=== PATIENT | female | born 1945 | race Caucasian/White ===

== ENCOUNTER 2016-12-08 16:09 | Emergency (ER) | payer MEDICARE, BC ==
[2005-12-08 15:01] VITALS: BP 138/79
[~2016-12-08] VITALS: Ht 162.6 cm; Wt 81.8 kg
[~2016-12-08 16:09] MED LIST: 00186-0370-20 IH; ALBUTEROL0.83 MG/ML IH; AMBIEN 5MG TABLE5 MG PO; AMBIEN CR 12.12.5 MG PO; AMBIEN CR6.25 MG PO; AMBIEN5 MG PO; ANORO IH; ARTHROTEC 775 MG/TAB; ASPI325T6 PO; ASPIRIN 32325 MG/TAB PO; ASTRAMORPH IJ; ATARAX 25MG25 MG/TAB PO; ATIVAN 0.50.5 MG/TAB PO; ATIVAN 1MG T1 MG/TAB PO; CALCIUM 600 + V1 TA1 PO; CELEBREX 200MG200 MG PO; CELEBREX50 MG PO; DOXYCYCLINE 10100 MG PO; ELAVIL50 MG PO; FLUOXETINE; FOSAMAX 70MG TA70 MG PO; LASIX 20MG TABL20 MG PO; LOTENSIN HCT 201 TAB PO; LOTENSIN5 MG PO; MILLIPRED5 MG PO; MORP4; MORPHINE 10M10 MG/ML IJ; MS CONTIN 660 MG/TAB PO; NORVASC 5MG5 MG/TAB PO; OXYCONTIN 10MG10 MG PO; OXYCONTIN 20MG20 MG PO; PERIACTIN 4MG TA4 MG PO; PHENERGAN 25 TA25 MG PO; PHENERGAN50 M1 PO; PRILOSEC 20MG20 MG PO; PROZAC 20MG20 MG PO; RESTASIS0.05% OP; RESTORIL 1515 MG/CAP PO; ROXICODONE15 MG PO; SEROQUEL XR150 MG PO; SEROQUEL50 MG PO; SYNTHROID 0.0.025 MG PO; SYNTHROID0.088 MG/T PO; SYNTHROID0.1 MG/TAB PO; TOPROL XL 50MG50 MG PO; TYLENOL 500MG500 MG PO; ULORIC40 MG PO; VITAMIN B11000 MCG/M IM; VOLTAREN GEL 1%1 TU TP; ZOFRAN 4MG T4 MG/TAB PO; ZOVIRAX400 MG PO; ZYLOPRIM 100MG100 MG PO
[2016-12-08 16:10] VITALS: TEMP 98.9
[2016-12-08] MEDS ORDERED: AMOXICILLIN 50500 MG (16:13)
[2016-12-08] MEDS ORDERED: CEPHALEXIN500 M1 PO (16:45)
[2016-12-08 17:57] VITALS: BP 145/70; PULSE 72
== END 2016-12-08 17:58 | disposition home or self-care (01) ==
LOC: COL.ER 16:09
DX: S81.812A Laceration without foreign body, left lower leg, initial encounter (principal); W22.8XXA Striking against or struck by other objects, initial encounter; Y92.830 Public park as the place of occurrence of the external cause

== ENCOUNTER 2017-03-14 19:14 | Emergency (ER) | payer MEDICARE, BC ==
[2005-12-08 15:01] VITALS: BP 138/79
[~2017-03-14] VITALS: Ht 162.6 cm; Wt 84.1 kg
[~2017-03-14 19:14] MED LIST changes: +AMOXICILLIN 50500 MG; +CEPHALEXIN500 M1 PO
[2017-03-14 19:16] VITALS: TEMP 98
[2017-03-14] MEDS ORDERED: AMBIEN 10MG10 MG PO (19:31)
[2017-03-14] MEDS ORDERED: NORVASC 5MG5 MG/TAB PO (19:31)
[2017-03-14] MEDS ORDERED: CALCIUM 600MG+D1 TAB PO (19:32)
[2017-03-14] MEDS ORDERED: PRILOSEC 20MG20 MG PO (19:32)
[2017-03-14] MEDS ORDERED: PHENERGAN 25 TA25 MG PO (19:33)
[2017-03-14] MEDS ORDERED: 00186-0370-20 IH (19:34)
[2017-03-14] MEDS ORDERED: KLOR-CON SPRIN10 MEQ PO (19:38)
[2017-03-14] MEDS ORDERED: B-12 100 MCG (19:38)
[2017-03-14] MEDS ORDERED: NEURONTIN100 MG/CAP PO (19:38)
[2017-03-14 20:12] LABS: GRAN # 4.8 (1.4-6.5); GRAN % 82.7 % (42.2-75.2); LYMPH # 0.8 (1.2-3.4); LYMPH % 13.2 % (20.0-51.0); MEAN CELL VOLUME 95 fl (80.0-100.0); MEAN CORPUSCULAR HGB CONC 33 g/dl (33.0-37.0); MEAN PLATELET VOLUME 9.5 fl (7.4-10.4); MONO # 0.2 (0.1-0.6); MONO % 3.6 % (1.7-9.3); PLATELET COUNT 224 K/mm3 (130-400); RED BLOOD COUNT 3.62 M/mm3 (4.10-5.30); REDCELL DISTRIBUTION WIDTH-CV 12.6 % (11.5-14.5); WHITE BLOOD COUNT 5.9 K/mm3 (4.8-10.8)
[2017-03-14 20:16] LABS: HEMATOCRIT 34.4 % (37.0-47.0); HEMOGLOBIN 11.4 g/dl (12.5-16.0); MEAN CORPUSCULAR HEMOGLOBIN 31 pg (27.0-31.0)
[2017-03-14 20:21] LABS: ADJUSTED CALCIUM 8.5 mg/dL (8.4-10.2); ALBUMIN 3.8 gm/dL (3.5-5.0); BILIRUBIN,TOTAL 0.4 mg/dL (0.0-1.0); CALCIUM 8.3 mg/dL (8.4-10.2); CREATININE, serum 1.86 mg/dL (0.52-1.25); TOTAL PROTEIN 7.3 gm/dL (6.4-8.2)
[2017-03-14 21:30] VITALS: BP 156/88; PULSE 69
== END 2017-03-14 21:30 | disposition home or self-care (01) ==
LOC: COL.ER 19:14
PROVIDERS: Emergency Medicine
DX: T85.840A Pain due to nervous system prosthetic devices, implants and grafts, initial encounter (principal); E86.0 Dehydration; R93.8 Abnormal findings on diagnostic imaging of other specified body structures; G89.29 Other chronic pain; N18.9 Chronic kidney disease, unspecified; Z96.653 Presence of artificial knee joint, bilateral; C90.01 Multiple myeloma in remission
CPT/HCPCS: J1170; J1200; J2765; J7030

== ENCOUNTER 2017-07-09 16:24 | Emergency (ER) | payer MEDICARE, BC ==
[2005-12-08 15:01] VITALS: BP 138/79
[~2017-07-09] VITALS: Ht 162.6 cm; Wt 90.9 kg
[~2017-07-09 16:24] MED LIST changes: +AMBIEN 10MG10 MG PO; +B-12 100 MCG; +CALCIUM 600MG+D1 TAB PO; +KLOR-CON SPRIN10 MEQ PO; +NEURONTIN100 MG/CAP PO
[2017-07-09 16:27] VITALS: TEMP 98.6
[2017-07-09 18:15] LABS: BASO % 0.1 % (0.0-2.0); GRAN % 84.8 % (42.2-75.2); LYMPH # 0.8 (1.2-3.4); LYMPH % 9.9 % (20.0-51.0); MEAN CELL VOLUME 95 fl (80.0-100.0); MEAN CORPUSCULAR HGB CONC 33 g/dl (33.0-37.0); MEAN PLATELET VOLUME 10.4 fl (7.4-10.4); MONO # 0.4 (0.1-0.6); MONO % 4.2 % (1.7-9.3); PLATELET COUNT 201 K/mm3 (130-400); WHITE BLOOD COUNT 8.3 K/mm3 (4.8-10.8)
[2017-07-09 18:17] LABS: HEMATOCRIT 33.1 % (37.0-47.0); HEMOGLOBIN 10.9 g/dl (12.5-16.0); MEAN CORPUSCULAR HEMOGLOBIN 31 pg (27.0-31.0)
[2017-07-09 18:38] LABS: ADJUSTED CALCIUM 9.5 mg/dL (8.4-10.2); ALBUMIN 4.2 gm/dL (3.5-5.0); BILIRUBIN,TOTAL 0.3 mg/dL (0.0-1.0); CALCIUM 9.7 mg/dL (8.4-10.2); CREATININE, serum 1.61 mg/dL (0.52-1.25); POTASSIUM 5.6 mmol/L (3.4-5.0)
[2017-07-09 18:56] LABS: PH 5 (5-8); SQUAMOUS EPITHELIAL None Seen /hpf; URINE APPEARANCE Clear; URINE BACTERIA Rare /hpf; URINE BILIRUBIN Negative (NEGATIVE); URINE BLOOD Negative (NEGATIVE); URINE COLOR Yellow; URINE GLUCOSE Negative (NEGATIVE); URINE KETONE Negative (NEGATIVE); URINE RBC 0-2 /hpf; URINE UROBILINOGEN Negative (NEGATIVE); URINE WBC 0-2 /hpf
[2017-07-09] MEDS ORDERED: TOPROL XL 50MG50 MG PO (18:57)
[2017-07-09] MEDS ORDERED: LASIX 20MG TABL20 MG PO (19:11)
[2017-07-09] MEDS ORDERED: SYNTHROID0.125 MG/T PO (19:12)
[2017-07-09 23:23] VITALS: BP 205/102; PULSE 56
== END 2017-07-09 23:26 | disposition home or self-care (01) ==
LOC: COL.ER 16:24
PROVIDERS: Emergency Medicine
DX: G89.29 Other chronic pain (principal); R10.31 Right lower quadrant pain; I10 Essential (primary) hypertension; M54.5 Low back pain; Z97.8 Presence of other specified devices
CPT/HCPCS: J1885; J2360; J3010; J7030

== ENCOUNTER → 2017-09-20 | Outpatient (REF) ==
[~2017-09-20] MED LIST changes: +APRESOLINE 10MG10 MG PO; +DESYREL 50MG50 MG PO; +IPRATROPIUM BROM3 M1 IH; +SYNTHROID0.125 MG/T PO; +TYLENOL 325MG325 MG PO
[2017-09-20 09:30] LABS: BASO % 0.7 % (0.0-2.0); EOS # 0.3 (0.0-0.7); EOS % 6.3 % (0-4.0); GRAN # 2.3 (1.4-6.5); GRAN % 50.8 % (42.2-75.2); HEMATOCRIT 40.4 % (37.0-47.0); LYMPH # 1.5 (1.2-3.4); MEAN CELL VOLUME 93 fl (80.0-100.0); MEAN CORPUSCULAR HEMOGLOBIN 30 pg (27.0-31.0); MEAN CORPUSCULAR HGB CONC 32 g/dl (33.0-37.0); MEAN PLATELET VOLUME 10.1 fl (7.4-10.4); MONO # 0.4 (0.1-0.6); MONO % 9.2 % (1.7-9.3); PLATELET COUNT 163 K/mm3 (130-400); RED BLOOD COUNT 4.34 M/mm3 (4.10-5.30); WHITE BLOOD COUNT 4.5 K/mm3 (4.8-10.8)
[2017-09-20 10:13] LABS: CALCIUM 9.9 mg/dL (8.4-10.2); CREATININE, serum 1.52 mg/dL (0.52-1.25); URIC ACID 4.6 mg/dL (2.5-6.2)
== END ==
LOC: ZLAB.STJ 09:21
PROVIDERS: Family Medicine
DX: R41.82 Altered mental status, unspecified (principal)

== ENCOUNTER 2017-09-24 08:22 | Emergency (ER) | payer MEDICARE, BC ==
[2005-12-08 15:01] VITALS: BP 138/79
[~2017-09-24] VITALS: Ht 162.6 cm; Wt 88.6 kg
[2017-09-24 08:23] VITALS: TEMP 97
[2017-09-24 08:56] LABS: BASO % 0.5 % (0.0-2.0); EOS # 0.2 (0.0-0.7); GRAN # 3.5 (1.4-6.5); GRAN % 59.8 % (42.2-75.2); HEMATOCRIT 38.1 % (37.0-47.0); HEMOGLOBIN 12.5 g/dl (12.5-16.0); LYMPH # 1.5 (1.2-3.4); LYMPH % 25.6 % (20.0-51.0); MEAN CELL VOLUME 92 fl (80.0-100.0); MEAN CORPUSCULAR HEMOGLOBIN 30 pg (27.0-31.0); MEAN CORPUSCULAR HGB CONC 33 g/dl (33.0-37.0); MEAN PLATELET VOLUME 10.2 fl (7.4-10.4); MONO # 0.5 (0.1-0.6); MONO % 9.2 % (1.7-9.3); PLATELET COUNT 149 K/mm3 (130-400); RED BLOOD COUNT 4.13 M/mm3 (4.10-5.30); WHITE BLOOD COUNT 5.8 K/mm3 (4.8-10.8)
[2017-09-24 09:05] LABS: ADJUSTED CALCIUM 9.2 mg/dL (8.4-10.2); ALBUMIN 4.3 gm/dL (3.5-5.0); BILIRUBIN,TOTAL 0.6 mg/dL (0.0-1.0); CALCIUM 9.4 mg/dL (8.4-10.2); CREATININE, serum 1.59 mg/dL (0.52-1.25); POTASSIUM 4.4 mmol/L (3.4-5.0); TOTAL PROTEIN 7.7 gm/dL (6.4-8.2)
[2017-09-24 10:56] LABS: COLLECTION METHOD CATHETER
[2017-09-24 11:03] LABS: PH 7 (5-8); SQUAMOUS EPITHELIAL 0-2 /hpf; URINE APPEARANCE Clear; URINE BACTERIA None Seen /hpf; URINE BILIRUBIN Negative (NEGATIVE); URINE BLOOD Negative (NEGATIVE); URINE COLOR Straw; URINE GLUCOSE Negative (NEGATIVE); URINE KETONE Negative (NEGATIVE); URINE LEUKOCYTE ESTERASE Negative (NEGATIVE); URINE PROTEIN(semi-quant) 3+ (NEGATIVE); URINE UROBILINOGEN Negative (NEGATIVE); URINE WBC 0-2 /hpf
[2017-09-24 12:11] VITALS: BP 168/85; PULSE 65
== END 2017-09-24 12:00 | disposition home or self-care (01) ==
LOC: COL.ER 08:22
PROVIDERS: Emergency Medicine
DX: S09.90XA Unspecified injury of head, initial encounter (principal); G89.29 Other chronic pain; I12.9 Hypertensive chronic kidney disease with stage 1 through stage 4 chronic kidney disease, or unspecified chronic kidney disease; N18.9 Chronic kidney disease, unspecified; E03.9 Hypothyroidism, unspecified; M35.3 Polymyalgia rheumatica; W18.30XA Fall on same level, unspecified, initial encounter; W22.8XXA Striking against or struck by other objects, initial encounter
CPT/HCPCS: J2765; J3010; J7030; J7040; J7512

== ENCOUNTER 2017-10-01 03:50 | Emergency (ER) | payer MEDICARE, BC ==
[2005-12-08 15:01] VITALS: BP 138/79
[~2017-10-01] VITALS: Ht 162.6 cm; Wt 89.5 kg
[~2017-10-01 03:50] MED LIST changes: +APRESOLINE50 MG PO; +ASPIRIN E.C. 8181 MG PO; +BENADRYL25 M2 PO; +CEFTIN 250250 MG/TAB PO; +GOOD NEIGH1200 MG/15 PO; +NITRO-DUR0.6 MG/PAT TD; +PROTONIX20 MG PO
[2017-10-01 03:53] VITALS: TEMP 97.1
[2017-10-01 04:05] LABS: BASO % 0.2 % (0.0-2.0); EOS # 0.2 (0.0-0.7); EOS % 1.7 % (0-4.0); GRAN # 9.4 (1.4-6.5); GRAN % 90.3 % (42.2-75.2); HEMATOCRIT 41.4 % (37.0-47.0); LYMPH # 0.3 (1.2-3.4); LYMPH % 3.1 % (20.0-51.0); MEAN CELL VOLUME 91 fl (80.0-100.0); MEAN CORPUSCULAR HEMOGLOBIN 30 pg (27.0-31.0); MEAN CORPUSCULAR HGB CONC 33 g/dl (33.0-37.0); MEAN PLATELET VOLUME 9.9 fl (7.4-10.4); MONO # 0.4 (0.1-0.6); MONO % 4.2 % (1.7-9.3); PLATELET COUNT 179 K/mm3 (130-400); RED BLOOD COUNT 4.56 M/mm3 (4.10-5.30); WHITE BLOOD COUNT 10.4 K/mm3 (4.8-10.8)
[2017-10-01 04:09] LABS: HEMOGLOBIN 13.8 g/dl (12.5-16.0)
[2017-10-01 04:16] LABS: ADJUSTED CALCIUM 9.3 mg/dL (8.4-10.2); ALBUMIN 3.8 gm/dL (3.5-5.0); BILIRUBIN,TOTAL 0.6 mg/dL (0.0-1.0); CALCIUM 9.1 mg/dL (8.4-10.2); CREATININE, serum 2.04 mg/dL (0.52-1.25); MAGNESIUM 1.9 mg/dL (1.6-2.3); PHOSPHOROUS 2.6 mg/dL (2.5-4.5); POTASSIUM 3.6 mmol/L (3.4-5.0); TOTAL PROTEIN 7.4 gm/dL (6.4-8.2)
[2017-10-01 04:28] LABS: TROPONIN-I 0.031 ng/mL (0.000-0.034)
[2017-10-01 04:37] LABS: COLLECTION METHOD CATHETER
[2017-10-01 04:43] LABS: PH 5 (5-8); URINE APPEARANCE Hazy; URINE BACTERIA Rare /hpf; URINE BILIRUBIN Negative (NEGATIVE); URINE BLOOD Negative (NEGATIVE); URINE COLOR Yellow; URINE GLUCOSE Negative (NEGATIVE); URINE KETONE Negative (NEGATIVE); URINE LEUKOCYTE ESTERASE Negative (NEGATIVE); URINE PROTEIN(semi-quant) 3+ (NEGATIVE); URINE UROBILINOGEN Negative (NEGATIVE)
[2017-10-01 09:52] VITALS: BP 164/91; PULSE 76
== END 2017-10-01 09:32 | disposition home or self-care (01) ==
LOC: COL.ER 03:50
PROVIDERS: Emergency Medicine
DX: I10 Essential (primary) hypertension (principal); R11.10 Vomiting, unspecified; I21.4 Non-ST elevation (NSTEMI) myocardial infarction; J44.9 Chronic obstructive pulmonary disease, unspecified; M10.9 Gout, unspecified; G89.29 Other chronic pain; M35.3 Polymyalgia rheumatica; E03.9 Hypothyroidism, unspecified; Z87.440 Personal history of urinary (tract) infections; Z79.82 Long term (current) use of aspirin
CPT/HCPCS: C9113; J0360; J2405; J2550; J3010

== ENCOUNTER → 2017-10-05 | Outpatient (REF) ==
[2017-10-05 10:23] LABS: CREATININE, serum 1.99 mg/dL (0.52-1.25); POTASSIUM 4.6 mmol/L (3.4-5.0)
== END ==
LOC: ZLAB.STJ 09:56
PROVIDERS: Family Medicine
DX: R79.89 Other specified abnormal findings of blood chemistry (principal)

== ENCOUNTER → 2017-10-06 | Outpatient (CLI) | payer MEDICARE, BC | LOC: COL.VAS 08:51 | DX: I10 Essential (primary) hypertension (principal); I70.1 Atherosclerosis of renal artery; N28.9 Disorder of kidney and ureter, unspecified ==

== ENCOUNTER 2018-01-30 12:38 | Emergency (ER) | payer MEDICARE, BC ==
[2005-12-08 15:01] VITALS: BP 138/79
[~2018-01-30] VITALS: Ht 162.6 cm; Wt 81.8 kg
[2018-01-30 12:39] VITALS: BP 155/84; TEMP 97.5
[2018-01-30 13:19] LABS: BASO % 0.5 % (0.0-2.0); EOS # 0.8 (0.0-0.7); EOS % 14.1 % (0-4.0); GRAN # 3.1 (1.4-6.5); LYMPH # 1.2 (1.2-3.4); LYMPH % 20.6 % (20.0-51.0); MEAN CELL VOLUME 93 fl (80.0-100.0); MEAN CORPUSCULAR HGB CONC 33 g/dl (33.0-37.0); MEAN PLATELET VOLUME 9.5 fl (7.4-10.4); MONO # 0.7 (0.1-0.6); MONO % 11.6 % (1.7-9.3); PLATELET COUNT 213 K/mm3 (130-400); RED BLOOD COUNT 3.26 M/mm3 (4.10-5.30); REDCELL DISTRIBUTION WIDTH-CV 14.6 % (11.5-14.5)
[2018-01-30 13:22] LABS: HEMATOCRIT 30.4 % (37.0-47.0); MEAN CORPUSCULAR HEMOGLOBIN 31 pg (27.0-31.0)
[2018-01-30 13:25] LABS: ALBUMIN 3.6 gm/dL (3.5-5.0); BILIRUBIN,TOTAL 0.4 mg/dL (0.0-1.0); C-REACTIVE PROTEIN 1.6 mg/dL (0.0-0.9); CALCIUM 9.2 mg/dL (8.4-10.2); CREATININE, serum 2.55 mg/dL (0.52-1.25); POTASSIUM 4.3 mmol/L (3.4-5.0); TOTAL PROTEIN 8.3 gm/dL (6.4-8.2)
[2018-01-30 14:21] LABS: COLLECTION METHOD CLEAN CATCH
[2018-01-30 14:28] LABS: PH 8 (5-8); SQUAMOUS EPITHELIAL 0-2 /hpf; URINE APPEARANCE Clear; URINE BACTERIA None Seen /hpf; URINE BILIRUBIN Negative (NEGATIVE); URINE BLOOD Negative (NEGATIVE); URINE COLOR Straw; URINE GLUCOSE Negative (NEGATIVE); URINE KETONE Negative (NEGATIVE); URINE LEUKOCYTE ESTERASE Negative (NEGATIVE); URINE NITRATE Negative (NEGATIVE); URINE PROTEIN(semi-quant) 2+ (NEGATIVE); URINE RBC 0-2 /hpf; URINE UROBILINOGEN Negative (NEGATIVE)
[2018-01-30 14:53] VITALS: PULSE 73
== END 2018-01-30 15:03 | disposition home or self-care (01) ==
LOC: COL.ER 12:38
PROVIDERS: Emergency Medicine
DX: R10.31 Right lower quadrant pain (principal); I10 Essential (primary) hypertension; I25.2 Old myocardial infarction; J44.9 Chronic obstructive pulmonary disease, unspecified; E03.9 Hypothyroidism, unspecified; E78.5 Hyperlipidemia, unspecified; Z87.891 Personal history of nicotine dependence; Z79.82 Long term (current) use of aspirin
CPT/HCPCS: J2270; J2405; J7030

== ENCOUNTER 2018-04-07 12:49 | Emergency (ER) | payer MEDICARE, BC ==
[2005-12-08 15:01] VITALS: BP 138/79
[~2018-04-07] VITALS: Ht 162.6 cm; Wt 81.8 kg
[~2018-04-07 12:49] MED LIST changes: +ALDACTONE 25MG25 M1 PO; +B-121000 MCG PO; +CALTRATE-600 W600 MG PO; +LIPITOR20 MG PO; +OMNICEF 300MG300 MG PO; +SEROQUEL 200MG200 MG PO; +TOPROL XL 25MG25 MG PO
[2018-04-07 12:53] VITALS: TEMP 97.8
[2018-04-07 13:20] LABS: BASO % 0.1 % (0.0-2.0); EOS % 0.4 % (0-4.0); GRAN # 6.7 (1.4-6.5); HEMATOCRIT 27.1 % (37.0-47.0); HEMOGLOBIN 8.7 g/dl (12.5-16.0); LYMPH # 0.7 (1.2-3.4); LYMPH % 8.3 % (20.0-51.0); MEAN CELL VOLUME 96 fl (80.0-100.0); MEAN CORPUSCULAR HEMOGLOBIN 31 pg (27.0-31.0); MEAN CORPUSCULAR HGB CONC 32 g/dl (33.0-37.0); MEAN PLATELET VOLUME 11.5 fl (7.4-10.4); MONO # 0.6 (0.1-0.6); MONO % 7.7 % (1.7-9.3); PLATELET COUNT 175 K/mm3 (130-400); RED BLOOD COUNT 2.82 M/mm3 (4.10-5.30); REDCELL DISTRIBUTION WIDTH-CV 18.8 % (11.5-14.5)
[2018-04-07 13:24] LABS: INR 1.2 (0.8-3.0); PROTHROMBIN TIME 13.6 SECONDS (9.7-12.8)
[2018-04-07 13:26] LABS: PARTIAL THROMBOPLASTIN TIME 33.1 SECONDS (26.0-37.0)
[2018-04-07 13:29] LABS: ALBUMIN 3.6 gm/dL (3.5-5.0); BILIRUBIN,TOTAL 0.3 mg/dL (0.0-1.0); CALCIUM 8.3 mg/dL (8.4-10.2); MAGNESIUM 2.5 mg/dL (1.6-2.3); PHOSPHOROUS 5.9 mg/dL (2.5-4.5); TOTAL PROTEIN 7.1 gm/dL (6.4-8.2)
[2018-04-07 13:30] LABS: POTASSIUM 8.1 mmol/L (3.4-5.0)
[2018-04-07 13:40] LABS: TROPONIN-I 0.015 ng/mL (0.000-0.034)
[2018-04-07 13:45] LABS: ARTERIAL BLD GAS TCO2 CT 25.2; ARTERIAL BLOOD GAS BASE EXCESS -2.5 (-2-2); ARTERIAL BLOOD GAS HCO3 23.7 meq/L (22-26); ARTERIAL BLOOD GAS PCO2 47.4 mmHg (35-45); ARTERIAL BLOOD GAS PO2 87.6 mmHg (80-100); ARTERIAL BLOOD GAS pH 7.32 (7.35-7.45)
[2018-04-07 13:58] LABS: THYROID STIMULATING HORMONE 5.15 uIU/mL (0.465-4.680)
[2018-04-07 14:17] LABS: COLLECTION METHOD CLEAN CATCH
[2018-04-07 14:22] LABS: PH 6 (5-8); SQUAMOUS EPITHELIAL None Seen /hpf; URINE APPEARANCE Clear; URINE BACTERIA None Seen /hpf; URINE BILIRUBIN Negative (NEGATIVE); URINE BLOOD Negative (NEGATIVE); URINE COLOR Yellow; URINE GLUCOSE 2+ (NEGATIVE); URINE KETONE Negative (NEGATIVE); URINE LEUKOCYTE ESTERASE Negative (NEGATIVE); URINE NITRATE Negative (NEGATIVE); URINE PROTEIN(semi-quant) 3+ (NEGATIVE); URINE RBC 0-2 /hpf; URINE UROBILINOGEN Negative (NEGATIVE)
[2018-04-07 14:24] VITALS: BP 137/78; PULSE 40
== END 2018-04-07 14:24 | disposition short-term general hospital (02) ==
LOC: COL.ER 12:49
PROVIDERS: Emergency Medicine
DX: N19 Unspecified kidney failure (principal); I50.9 Heart failure, unspecified; E87.5 Hyperkalemia; I49.9 Cardiac arrhythmia, unspecified; Z79.82 Long term (current) use of aspirin
CPT/HCPCS: J0461; J1815; J1940

== ENCOUNTER 2018-07-03 10:52 | Inpatient (IN) | payer MEDICARE, BC ==
[~2018-07-03] VITALS: Ht 162.6 cm; Wt 75.5 kg
[2018-07-03] VITALS (403 sets, daily range): BP systolic 129–181; BP diastolic 69–82; PULSE 78–106; TEMP 98.1–99.1; O2SAT 82–100
[2018-07-03 11:44] LABS: BASO # 0.1 (0.0-0.2); BASO % 0.3 % (0.0-2.0); EOS # 0.1 (0.0-0.7); EOS % 0.7 % (0-4.0); GRAN # 14.8 (1.4-6.5); GRAN % 83.8 % (42.2-75.2); HEMOGLOBIN 11.6 g/dl (12.5-16.0); LYMPH # 1.9 (1.2-3.4); LYMPH % 10.6 % (20.0-51.0); MEAN CELL VOLUME 94 fl (80.0-100.0); MEAN CORPUSCULAR HEMOGLOBIN 32 pg (27.0-31.0); MEAN CORPUSCULAR HGB CONC 34 g/dl (33.0-37.0); MEAN PLATELET VOLUME 9.9 fl (7.4-10.4); MONO # 0.8 (0.1-0.6); MONO % 4.2 % (1.7-9.3); PLATELET COUNT 327 K/mm3 (130-400); RED BLOOD COUNT 3.67 M/mm3 (4.10-5.30); REDCELL DISTRIBUTION WIDTH-CV 12.7 % (11.5-14.5)
[2018-07-03 11:45] LABS: HEMATOCRIT 34.4 % (37.0-47.0); PROTHROMBIN TIME 11.3 SECONDS (9.7-12.8)
[2018-07-03 11:48] LABS: PARTIAL THROMBOPLASTIN TIME 33.4 SECONDS (26.0-37.0)
[2018-07-03 11:50] LABS: ALBUMIN 4.2 gm/dL (3.5-5.0); BILIRUBIN,TOTAL 0.4 mg/dL (0.0-1.0); CALCIUM 9.6 mg/dL (8.4-10.2); CREATININE, serum 2.17 mg/dL (0.52-1.25); POTASSIUM 4.6 mmol/L (3.4-5.0)
[2018-07-03 12:04] LABS: TROPONIN-I 0.016 ng/mL (0.000-0.034)
[2018-07-03 12:20] LABS: COLLECTION METHOD CLEAN CATCH
[2018-07-03 12:25] LABS: PH 8 (5-8); SQUAMOUS EPITHELIAL 0-2 /hpf; URINE APPEARANCE Clear; URINE BACTERIA None Seen /hpf; URINE BILIRUBIN Negative (NEGATIVE); URINE BLOOD Negative (NEGATIVE); URINE COLOR Yellow; URINE GLUCOSE Negative (NEGATIVE); URINE KETONE Negative (NEGATIVE); URINE LEUKOCYTE ESTERASE Negative (NEGATIVE); URINE NITRATE Negative (NEGATIVE); URINE PROTEIN(semi-quant) 3+ (NEGATIVE); URINE RBC 0-2 /hpf; URINE UROBILINOGEN Negative (NEGATIVE)
[2018-07-03] MEDS ORDERED: DEMADEX 20MG20 M1 PO (13:42)
[2018-07-03] MEDS ORDERED: AMBIEN 10MG10 MG PO (13:42)
[2018-07-03] MEDS ORDERED: TOPROL XL 25MG25 MG PO (13:44)
[2018-07-03] MEDS ORDERED: LEXAPRO 10MG10 MG PO (13:46)
[2018-07-03] MEDS ORDERED: ABILIFY2 MG PO (13:49)
[2018-07-04] VITALS (531 sets, daily range): BP systolic 135–189; BP diastolic 65–100; PULSE 72–101; TEMP 97.5–98.6; O2SAT 82–100
[2018-07-04 04:20] LABS: BASO % 0.1 % (0.0-2.0); GRAN # 8.8 (1.4-6.5); GRAN % 87.4 % (42.2-75.2); HEMOGLOBIN 10.4 g/dl (12.5-16.0); LYMPH # 0.8 (1.2-3.4); LYMPH % 7.5 % (20.0-51.0); MEAN CELL VOLUME 93 fl (80.0-100.0); MEAN CORPUSCULAR HEMOGLOBIN 32 pg (27.0-31.0); MEAN CORPUSCULAR HGB CONC 34 g/dl (33.0-37.0); MEAN PLATELET VOLUME 9.8 fl (7.4-10.4); MONO # 0.5 (0.1-0.6); MONO % 4.7 % (1.7-9.3); PLATELET COUNT 282 K/mm3 (130-400); RED BLOOD COUNT 3.29 M/mm3 (4.10-5.30); REDCELL DISTRIBUTION WIDTH-CV 13.2 % (11.5-14.5)
[2018-07-04 04:21] LABS: HEMATOCRIT 30.7 % (37.0-47.0)
[2018-07-04 04:30] LABS: CALCIUM 8.5 mg/dL (8.4-10.2); CHOLESTEROL RISK RATIO 4.3; CREATININE, serum 2.31 mg/dL (0.52-1.25); POTASSIUM 5.6 mmol/L (3.4-5.0)
[2018-07-04 04:49] LABS: TROPONIN-I 0.051 ng/mL (0.000-0.034)
[2018-07-04 11:26] LABS: CALCIUM 8.8 mg/dL (8.4-10.2); CREATININE, serum 2.46 mg/dL (0.52-1.25); POTASSIUM 4.6 mmol/L (3.4-5.0)
[2018-07-05] VITALS (8 sets, daily range): BP systolic 119–204; BP diastolic 50–91; PULSE 58–66; TEMP 97.2–98.7
[2018-07-05 06:44] LABS: BASO % 0.4 % (0.0-2.0); EOS # 0.1 (0.0-0.7); EOS % 1.6 % (0-4.0); GRAN # 5.1 (1.4-6.5); GRAN % 69.8 % (42.2-75.2); LYMPH # 1.4 (1.2-3.4); LYMPH % 19.2 % (20.0-51.0); MEAN CELL VOLUME 97 fl (80.0-100.0); MEAN CORPUSCULAR HGB CONC 33 g/dl (33.0-37.0); MEAN PLATELET VOLUME 10.1 fl (7.4-10.4); MONO # 0.6 (0.1-0.6); MONO % 8.7 % (1.7-9.3); PLATELET COUNT 234 K/mm3 (130-400); RED BLOOD COUNT 2.69 M/mm3 (4.10-5.30); REDCELL DISTRIBUTION WIDTH-CV 13.2 % (11.5-14.5)
[2018-07-05 06:50] LABS: HEMOGLOBIN 8.5 g/dl (12.5-16.0); MEAN CORPUSCULAR HEMOGLOBIN 32 pg (27.0-31.0)
[2018-07-05 06:59] LABS: ALBUMIN 3.1 gm/dL (3.5-5.0); CALCIUM 8.5 mg/dL (8.4-10.2); CREATININE, serum 2.44 mg/dL (0.52-1.25); MAGNESIUM 2.2 mg/dL (1.6-2.3); PHOSPHOROUS 4.3 mg/dL (2.5-4.5); POTASSIUM 4.9 mmol/L (3.4-5.0)
[2018-07-06] VITALS (7 sets, daily range): BP systolic 138–179; BP diastolic 61–91; PULSE 60–100; TEMP 97.4–98.9
[2018-07-06 07:56] LABS: BASO % 0.4 % (0.0-2.0); EOS # 0.2 (0.0-0.7); EOS % 2.6 % (0-4.0); GRAN # 5.3 (1.4-6.5); GRAN % 67.7 % (42.2-75.2); LYMPH # 1.6 (1.2-3.4); LYMPH % 20.7 % (20.0-51.0); MEAN CELL VOLUME 93 fl (80.0-100.0); MEAN CORPUSCULAR HGB CONC 34 g/dl (33.0-37.0); MEAN PLATELET VOLUME 9.6 fl (7.4-10.4); MONO # 0.6 (0.1-0.6); MONO % 8.3 % (1.7-9.3); PLATELET COUNT 229 K/mm3 (130-400); RED BLOOD COUNT 3.17 M/mm3 (4.10-5.30)
[2018-07-06 07:59] LABS: HEMATOCRIT 29.4 % (37.0-47.0); HEMOGLOBIN 9.9 g/dl (12.5-16.0); MEAN CORPUSCULAR HEMOGLOBIN 31 pg (27.0-31.0)
[2018-07-06 08:11] LABS: CALCIUM 8.9 mg/dL (8.4-10.2); CREATININE, serum 2.58 mg/dL (0.52-1.25); POTASSIUM 4.9 mmol/L (3.4-5.0)
[2018-07-07] VITALS (12 sets, daily range): BP systolic 59–190; BP diastolic 25–98; PULSE 58–76; TEMP 97–98.4
[2018-07-07 06:05] LABS: BASO % 0.7 % (0.0-2.0); EOS # 0.2 (0.0-0.7); GRAN # 3.8 (1.4-6.5); GRAN % 61.9 % (42.2-75.2); HEMATOCRIT 28.8 % (37.0-47.0); HEMOGLOBIN 9.5 g/dl (12.5-16.0); LYMPH # 1.4 (1.2-3.4); LYMPH % 23.6 % (20.0-51.0); MEAN CELL VOLUME 95 fl (80.0-100.0); MEAN CORPUSCULAR HEMOGLOBIN 31 pg (27.0-31.0); MEAN CORPUSCULAR HGB CONC 33 g/dl (33.0-37.0); MEAN PLATELET VOLUME 10.1 fl (7.4-10.4); MONO # 0.6 (0.1-0.6); MONO % 10.6 % (1.7-9.3); PLATELET COUNT 225 K/mm3 (130-400); RED BLOOD COUNT 3.04 M/mm3 (4.10-5.30); REDCELL DISTRIBUTION WIDTH-CV 13.1 % (11.5-14.5)
[2018-07-07 06:17] LABS: CALCIUM 8.9 mg/dL (8.4-10.2); CREATININE, serum 2.8 mg/dL (0.52-1.25); POTASSIUM 4.5 mmol/L (3.4-5.0)
[2018-07-07 08:41] LABS: PROTHROMBIN TIME 11.1 SECONDS (9.7-12.8)
[2018-07-07 08:44] LABS: PARTIAL THROMBOPLASTIN TIME 45.7 SECONDS (26.0-37.0)
[2018-07-08 03:49] VITALS: BP 146/72; PULSE 69; TEMP 98.1
[2018-07-08 07:21] LABS: BASO % 0.4 % (0.0-2.0); EOS # 0.2 (0.0-0.7); EOS % 3.6 % (0-4.0); GRAN # 2.6 (1.4-6.5); GRAN % 59.2 % (42.2-75.2); LYMPH # 1.2 (1.2-3.4); LYMPH % 27.4 % (20.0-51.0); MEAN CELL VOLUME 96 fl (80.0-100.0); MEAN CORPUSCULAR HGB CONC 33 g/dl (33.0-37.0); MEAN PLATELET VOLUME 10.2 fl (7.4-10.4); MONO # 0.4 (0.1-0.6); MONO % 9.2 % (1.7-9.3); PLATELET COUNT 203 K/mm3 (130-400); RED BLOOD COUNT 2.76 M/mm3 (4.10-5.30); REDCELL DISTRIBUTION WIDTH-CV 13.3 % (11.5-14.5)
[2018-07-08 07:28] LABS: HEMATOCRIT 26.4 % (37.0-47.0); HEMOGLOBIN 8.6 g/dl (12.5-16.0); MEAN CORPUSCULAR HEMOGLOBIN 31 pg (27.0-31.0)
[2018-07-08 07:30] LABS: CALCIUM 8.6 mg/dL (8.4-10.2); CREATININE, serum 2.43 mg/dL (0.52-1.25); POTASSIUM 4.6 mmol/L (3.4-5.0)
[2018-07-08 09:12] VITALS: BP 158/75; PULSE 64; TEMP 97.9
[2018-07-08 11:55] VITALS: BP 157/88; PULSE 63; TEMP 98.4
[2018-07-08 16:25] VITALS: BP 152/70; PULSE 66; TEMP 98.3
[2018-07-08 19:40] VITALS: BP 151/72; PULSE 66; TEMP 97.7
[2018-07-09] VITALS (7 sets, daily range): BP systolic 151–186; BP diastolic 70–89; PULSE 60–67; TEMP 97.7–98.9
[2018-07-09 07:39] LABS: CALCIUM 8.7 mg/dL (8.4-10.2); CREATININE, serum 2.21 mg/dL (0.52-1.25); POTASSIUM 4.5 mmol/L (3.4-5.0)
[2018-07-10] VITALS (305 sets, daily range): BP systolic 133–191; BP diastolic 69–103; PULSE 20–88; TEMP 96.5–98.7; O2SAT 93–98
[2018-07-10 06:30] LABS: BASO % 0.6 % (0.0-2.0); EOS # 0.2 (0.0-0.7); EOS % 4.5 % (0-4.0); GRAN # 3.3 (1.4-6.5); GRAN % 63.7 % (42.2-75.2); LYMPH # 1.2 (1.2-3.4); MEAN CELL VOLUME 95 fl (80.0-100.0); MEAN CORPUSCULAR HGB CONC 33 g/dl (33.0-37.0); MEAN PLATELET VOLUME 10.8 fl (7.4-10.4); MONO # 0.4 (0.1-0.6); PLATELET COUNT 179 K/mm3 (130-400); RED BLOOD COUNT 2.59 M/mm3 (4.10-5.30); REDCELL DISTRIBUTION WIDTH-CV 13.2 % (11.5-14.5)
[2018-07-10 06:36] LABS: HEMATOCRIT 24.6 % (37.0-47.0); MEAN CORPUSCULAR HEMOGLOBIN 31 pg (27.0-31.0)
[2018-07-10 06:38] LABS: CALCIUM 8.7 mg/dL (8.4-10.2); CREATININE, serum 2.27 mg/dL (0.52-1.25)
[2018-07-11] VITALS (823 sets, daily range): BP systolic 103–147; BP diastolic 62–100; PULSE 68–83; TEMP 97.7–98.6; O2SAT 76–99
[2018-07-11 07:08] LABS: BASO % 0.2 % (0.0-2.0); GRAN # 8.6 (1.4-6.5); GRAN % 88.1 % (42.2-75.2); LYMPH # 0.7 (1.2-3.4); LYMPH % 6.9 % (20.0-51.0); MEAN CELL VOLUME 95 fl (80.0-100.0); MEAN CORPUSCULAR HGB CONC 33 g/dl (33.0-37.0); MEAN PLATELET VOLUME 9.8 fl (7.4-10.4); MONO # 0.4 (0.1-0.6); MONO % 4.4 % (1.7-9.3); PLATELET COUNT 171 K/mm3 (130-400); REDCELL DISTRIBUTION WIDTH-CV 13.4 % (11.5-14.5)
[2018-07-11 07:13] LABS: HEMATOCRIT 22.7 % (37.0-47.0); HEMOGLOBIN 7.5 g/dl (12.5-16.0); MEAN CORPUSCULAR HEMOGLOBIN 31 pg (27.0-31.0)
[2018-07-12] VITALS (821 sets, daily range): BP systolic 144–175; BP diastolic 73–94; PULSE 68–95; TEMP 97.4–98; O2SAT 72–100
[2018-07-12 05:38] LABS: MEAN CELL VOLUME 97 fl (80.0-100.0); MEAN CORPUSCULAR HGB CONC 32 g/dl (33.0-37.0); MEAN PLATELET VOLUME 10.2 fl (7.4-10.4); PLATELET COUNT 142 K/mm3 (130-400); RED BLOOD COUNT 3.49 M/mm3 (4.10-5.30); REDCELL DISTRIBUTION WIDTH-CV 13.5 % (11.5-14.5)
[2018-07-12 05:46] LABS: HEMOGLOBIN 10.9 g/dl (12.5-16.0); MEAN CORPUSCULAR HEMOGLOBIN 31 pg (27.0-31.0)
[2018-07-12 05:47] LABS: HEMATOCRIT 33.7 % (37.0-47.0)
[2018-07-12 05:49] LABS: CALCIUM 8.5 mg/dL (8.4-10.2); CREATININE, serum 2.45 mg/dL (0.52-1.25); POTASSIUM 4.7 mmol/L (3.4-5.0)
[2018-07-12 06:25] LABS: BAND 5 % (0-10); EOSINOPHIL 1 % (0-4); HYPOCHROMIA 1+; LYMPHOCYTE 14 % (20.0-51.0); METAMYELOCYTE 2 % (0-0); NEUTROPHILS 70 % (42.0-75.2); PLATELET ESTIMATE DECREASED (NORMAL)
[2018-07-12 06:27] LABS: ANISOCYTOSIS 1+
[2018-07-13 01:01] VITALS: BP 180/89; PULSE 72; TEMP 98
[2018-07-13 04:17] VITALS: BP 148/75; PULSE 68; TEMP 97.6
[2018-07-13 07:36] VITALS: BP 183/86; PULSE 73; TEMP 97.9
[2018-07-13 07:44] LABS: BASO % 0.4 % (0.0-2.0); EOS # 0.3 (0.0-0.7); EOS % 5.1 % (0-4.0); GRAN # 3.5 (1.4-6.5); GRAN % 64.7 % (42.2-75.2); LYMPH % 18.1 % (20.0-51.0); MEAN CELL VOLUME 96 fl (80.0-100.0); MEAN CORPUSCULAR HGB CONC 33 g/dl (33.0-37.0); MONO # 0.6 (0.1-0.6); MONO % 11.5 % (1.7-9.3); PLATELET COUNT 177 K/mm3 (130-400); RED BLOOD COUNT 2.33 M/mm3 (4.10-5.30); REDCELL DISTRIBUTION WIDTH-CV 13.3 % (11.5-14.5)
[2018-07-13 07:47] LABS: HEMATOCRIT 22.3 % (37.0-47.0); MEAN CORPUSCULAR HEMOGLOBIN 31 pg (27.0-31.0)
[2018-07-13 07:51] LABS: HEMOGLOBIN 7.3 g/dl (12.5-16.0)
[2018-07-13 07:54] LABS: CALCIUM 8.5 mg/dL (8.4-10.2); CREATININE, serum 2.47 mg/dL (0.52-1.25); POTASSIUM 4.7 mmol/L (3.4-5.0)
[2018-07-13] MEDS ORDERED: BRILINTA90 MG PO (11:46)
[2018-07-13] MEDS ORDERED: LIPITOR 80MG80 MG PO (11:46)
[2018-07-13] MEDS ORDERED: NITROSTAT0.4 MG/TAB SL (11:47)
[2018-07-13] MEDS ORDERED: TOPROL XL 25MG25 MG PO (11:47)
[2018-07-13] MEDS ORDERED: NORVASC 10MG10 MG PO (11:47)
[2018-07-13] MEDS ORDERED: ALDACTONE 25MG25 M1 PO (11:48)
[2018-07-13 11:58] VITALS: BP 157/91; PULSE 78; TEMP 97.9
== END 2018-07-13 16:10 | disposition home or self-care (01) | DRG 246 ==
LOC: COL.ER 10:52 → ICU 13:03 → MEDICAL 13:03 → ICU 13:04 → MEDICAL 07-04 12:06 → ICU 07-10 14:28 → MEDICAL 07-12 20:44
PROVIDERS: Emergency Medicine; Family Medicine; Hospitalist; Internal Medicine; Internal Medicine Cardiovascular Disease; Internal Medicine Nephrology; Nurse Practitioner Family; Physician Assistant
PROC: B2111ZZ Fluoroscopy of Multiple Coronary Arteries using Low Osmolar Contrast (ICD-10-PCS; 2018-07-07)
PROC: 4A023N7 Measurement of Cardiac Sampling and Pressure, Left Heart, Percutaneous Approach (ICD-10-PCS; 2018-07-07)
PROC: 027236Z Dilation of Coronary Artery, Three Arteries with Three Drug-eluting Intraluminal Devices, Percutaneous Approach (ICD-10-PCS; principal; 2018-07-10)
PROC: B2111ZZ Fluoroscopy of Multiple Coronary Arteries using Low Osmolar Contrast (ICD-10-PCS; 2018-07-10)
DX: I16.0 Hypertensive urgency (principal); I21.A1 Myocardial infarction type 2; N18.4 Chronic kidney disease, stage 4 (severe); I50.32 Chronic diastolic (congestive) heart failure; Z66 Do not resuscitate; E85.89 Other amyloidosis; Q21.1 Atrial septal defect; C90.00 Multiple myeloma not having achieved remission; N17.9 Acute kidney failure, unspecified; E85.81 Light chain (AL) amyloidosis; E87.1 Hypo-osmolality and hyponatremia; I97.638 Postprocedural hematoma of a circulatory system organ or structure following other circulatory system procedure; I13.0 Hypertensive heart and chronic kidney disease with heart failure and stage 1 through stage 4 chronic kidney disease, or unspecified chronic kidney disease; I25.10 Atherosclerotic heart disease of native coronary artery without angina pectoris; E78.5 Hyperlipidemia, unspecified; Z87.891 Personal history of nicotine dependence; J44.9 Chronic obstructive pulmonary disease, unspecified; M35.3 Polymyalgia rheumatica; I27.22 Pulmonary hypertension due to left heart disease; I34.0 Nonrheumatic mitral (valve) insufficiency; E87.5 Hyperkalemia; D64.9 Anemia, unspecified; G89.29 Other chronic pain
CPT/HCPCS: 99223-AI; 99231-AI; 99232-AI; 99233-AI; 99239; C1725; C1760; C1769; C1874; C1887; C1894; C9600; J0360; J1644; J1815; J2250; J2270; J2405; J2550; J2765; J3010; J7030; J7050

== ENCOUNTER 2018-08-28 21:27 | Inpatient (IN) | payer MEDICARE, BC ==
[~2018-08-28] VITALS: Ht 162.6 cm; Wt 77.3 kg
[~2018-08-28 21:27] MED LIST changes: +ABILIFY2 MG PO; +BRILINTA90 MG PO; +DEMADEX 20MG20 M1 PO; +LEXAPRO 10MG10 MG PO; +LIPITOR 80MG80 MG PO; +NITROSTAT0.4 MG/TAB SL; +NORVASC 10MG10 MG PO
[2018-08-28 22:51] LABS: BASO % 0.2 % (0.0-2.0); EOS # 0.1 (0.0-0.7); EOS % 0.7 % (0-4.0); GRAN # 14.9 (1.4-6.5); GRAN % 89.8 % (42.2-75.2); LYMPH # 0.5 (1.2-3.4); LYMPH % 3.2 % (20.0-51.0); MEAN CELL VOLUME 93 fl (80.0-100.0); MEAN CORPUSCULAR HGB CONC 34 g/dl (33.0-37.0); MEAN PLATELET VOLUME 10.3 fl (7.4-10.4); MONO # 0.9 (0.1-0.6); MONO % 5.6 % (1.7-9.3); PLATELET COUNT 188 K/mm3 (130-400); RED BLOOD COUNT 2.41 M/mm3 (4.10-5.30); REDCELL DISTRIBUTION WIDTH-CV 13.9 % (11.5-14.5)
[2018-08-28 22:52] LABS: HEMATOCRIT 22.5 % (37.0-47.0); HEMOGLOBIN 7.7 g/dl (12.5-16.0); MEAN CORPUSCULAR HEMOGLOBIN 32 pg (27.0-31.0)
[2018-08-28 22:56] LABS: INR 1.2 (0.8-3.0); PROTHROMBIN TIME 13.2 SECONDS (9.7-12.8)
[2018-08-28 23:02] LABS: ALBUMIN 3.8 gm/dL (3.5-5.0); BILIRUBIN,TOTAL 0.3 mg/dL (0.0-1.0); CALCIUM 8.8 mg/dL (8.4-10.2); CREATININE, serum 3.09 mg/dL (0.52-1.25); POTASSIUM 4.1 mmol/L (3.4-5.0); TOTAL PROTEIN 7.4 gm/dL (6.4-8.2)
[2018-08-28 23:13] LABS: TROPONIN-I 0.029 ng/mL (0.000-0.034)
[2018-08-29] VITALS (10 sets, daily range): BP systolic 119–165; BP diastolic 52–80; PULSE 66–87; TEMP 97.8–98.8
[2018-08-29] MEDS ORDERED: DEMADEX 20MG20 M1 PO (01:42)
[2018-08-29] MEDS ORDERED: REMERON30 MG PO (01:42)
[2018-08-29 07:22] LABS: BASO % 0.1 % (0.0-2.0); EOS # 0.1 (0.0-0.7); EOS % 0.4 % (0-4.0); GRAN # 10.1 (1.4-6.5); GRAN % 85.7 % (42.2-75.2); LYMPH # 0.8 (1.2-3.4); LYMPH % 7.2 % (20.0-51.0); MEAN CELL VOLUME 97 fl (80.0-100.0); MEAN CORPUSCULAR HGB CONC 33 g/dl (33.0-37.0); MEAN PLATELET VOLUME 10.7 fl (7.4-10.4); MONO # 0.7 (0.1-0.6); MONO % 6.3 % (1.7-9.3); PLATELET COUNT 186 K/mm3 (130-400); RED BLOOD COUNT 2.06 M/mm3 (4.10-5.30); REDCELL DISTRIBUTION WIDTH-CV 14.1 % (11.5-14.5)
[2018-08-29 07:27] LABS: HEMOGLOBIN 6.6 g/dl (12.5-16.0); MEAN CORPUSCULAR HEMOGLOBIN 32 pg (27.0-31.0)
[2018-08-29 07:33] LABS: CALCIUM 8.5 mg/dL (8.4-10.2); CREATININE, serum 3.33 mg/dL (0.52-1.25); MAGNESIUM 2.2 mg/dL (1.6-2.3); POTASSIUM 4.7 mmol/L (3.4-5.0)
[2018-08-29 07:45] LABS: TROPONIN-I 6 HR POST INITIAL 0.048 ng/mL (0.000-0.034)
[2018-08-29 10:47] LABS: HEMATOCRIT 20.9 % (37.0-47.0)
[2018-08-29 10:48] LABS: HEMOGLOBIN 6.9 g/dl (12.5-16.0)
[2018-08-29 15:13] LABS: COLLECTION METHOD CLEAN CATCH
[2018-08-29 15:39] LABS: PH 5 (5-8); SQUAMOUS EPITHELIAL None Seen /hpf; URINE APPEARANCE Clear; URINE BACTERIA None Seen /hpf; URINE BILIRUBIN Negative (NEGATIVE); URINE BLOOD Negative (NEGATIVE); URINE COLOR Straw; URINE GLUCOSE Negative (NEGATIVE); URINE KETONE Negative (NEGATIVE); URINE LEUKOCYTE ESTERASE Negative (NEGATIVE); URINE NITRATE Negative (NEGATIVE); URINE PROTEIN(semi-quant) 3+ (NEGATIVE); URINE RBC 0-2 /hpf; URINE UROBILINOGEN Negative (NEGATIVE)
[2018-08-30] VITALS (13 sets, daily range): BP systolic 112–195; BP diastolic 51–86; PULSE 62–84; TEMP 97.6–98.9
[2018-08-30 07:20] LABS: BASO % 0.3 % (0.0-2.0); EOS # 0.4 (0.0-0.7); EOS % 6.7 % (0-4.0); LYMPH % 15.8 % (20.0-51.0); MEAN CELL VOLUME 97 fl (80.0-100.0); MEAN CORPUSCULAR HGB CONC 33 g/dl (33.0-37.0); MEAN PLATELET VOLUME 10.4 fl (7.4-10.4); MONO # 0.7 (0.1-0.6); PLATELET COUNT 191 K/mm3 (130-400); RED BLOOD COUNT 2.15 M/mm3 (4.10-5.30)
[2018-08-30 07:21] LABS: HEMATOCRIT 20.9 % (37.0-47.0); MEAN CORPUSCULAR HEMOGLOBIN 32 pg (27.0-31.0)
[2018-08-30 07:22] LABS: HEMOGLOBIN 6.8 g/dl (12.5-16.0)
[2018-08-30 07:33] LABS: CALCIUM 8.1 mg/dL (8.4-10.2); CREATININE, serum 3.07 mg/dL (0.52-1.25); POTASSIUM 3.8 mmol/L (3.4-5.0)
[2018-08-30 07:44] LABS: TROPONIN-I 0.03 ng/mL (0.000-0.034)
[2018-08-31 00:15] VITALS: BP 121/49; PULSE 70; TEMP 99
[2018-08-31 03:28] VITALS: BP 134/55; PULSE 64; TEMP 98.6
[2018-08-31 07:32] VITALS: BP 158/72; PULSE 59; TEMP 97.9
[2018-08-31 09:26] LABS: BASO % 0.3 % (0.0-2.0); EOS # 0.7 (0.0-0.7); EOS % 11.3 % (0-4.0); GRAN # 3.3 (1.4-6.5); LYMPH # 1.4 (1.2-3.4); LYMPH % 22.7 % (20.0-51.0); MEAN CELL VOLUME 98 fl (80.0-100.0); MEAN CORPUSCULAR HGB CONC 33 g/dl (33.0-37.0); MEAN PLATELET VOLUME 9.9 fl (7.4-10.4); MONO # 0.6 (0.1-0.6); MONO % 9.4 % (1.7-9.3); PLATELET COUNT 206 K/mm3 (130-400); RED BLOOD COUNT 2.34 M/mm3 (4.10-5.30)
[2018-08-31 09:32] LABS: HEMOGLOBIN 7.5 g/dl (12.5-16.0); MEAN CORPUSCULAR HEMOGLOBIN 32 pg (27.0-31.0)
[2018-08-31 09:39] LABS: CALCIUM 8.6 mg/dL (8.4-10.2); CREATININE, serum 3.11 mg/dL (0.52-1.25); POTASSIUM 3.8 mmol/L (3.4-5.0)
[2018-08-31] MEDS ORDERED: PLAVIX 75MG TAB75 MG PO (10:54)
[2018-08-31 11:35] VITALS: BP 170/83; PULSE 64; TEMP 98.5
[2018-09-01 17:44] LABS: LAMDA FREE LIGHT CHAIN SERUM 6.37 mg/dL (())
== END 2018-08-31 16:59 | disposition home or self-care (01) | DRG 811 ==
LOC: COL.ER 21:27 → MEDICAL 23:31
PROVIDERS: Emergency Medicine; Hospitalist; Internal Medicine Gastroenterology; Nurse Practitioner; Physician Assistant
PROC: 0DB68ZX Excision of Stomach, Via Natural or Artificial Opening Endoscopic, Diagnostic (ICD-10-PCS; principal; 2018-08-29 13:00)
PROC: 0DBK8ZX Excision of Ascending Colon, Via Natural or Artificial Opening Endoscopic, Diagnostic (ICD-10-PCS; 2018-08-30)
PROC: 0DBL8ZX Excision of Transverse Colon, Via Natural or Artificial Opening Endoscopic, Diagnostic (ICD-10-PCS; 2018-08-30)
DX: D64.9 Anemia, unspecified (principal); I21.A1 Myocardial infarction type 2; I13.0 Hypertensive heart and chronic kidney disease with heart failure and stage 1 through stage 4 chronic kidney disease, or unspecified chronic kidney disease; I50.32 Chronic diastolic (congestive) heart failure; N18.4 Chronic kidney disease, stage 4 (severe); N17.9 Acute kidney failure, unspecified; E85.9 Amyloidosis, unspecified; Z66 Do not resuscitate; D12.6 Benign neoplasm of colon, unspecified; K21.0 Gastro-esophageal reflux disease with esophagitis; K29.30 Chronic superficial gastritis without bleeding; I25.10 Atherosclerotic heart disease of native coronary artery without angina pectoris; Z95.5 Presence of coronary angioplasty implant and graft; J44.9 Chronic obstructive pulmonary disease, unspecified; I27.20 Pulmonary hypertension, unspecified; E78.5 Hyperlipidemia, unspecified; M35.3 Polymyalgia rheumatica; Z85.79 Personal history of other malignant neoplasms of lymphoid, hematopoietic and related tissues; F41.8 Other specified anxiety disorders; D63.1 Anemia in chronic kidney disease; G89.29 Other chronic pain
CPT/HCPCS: 99223-AI; 99233-AI; 99239; A4216; C9113; J0696; J1170; J2250; J2405; J3010; J7030

== ENCOUNTER 2018-09-25 08:10 | Outpatient (CLI) | payer MEDICARE, BC ==
[2005-12-08 15:01] VITALS: BP 138/79
[~2018-09-25] VITALS: Ht 162.7 cm; Wt 81.0 kg
[2018-09-25] VITALS (8 sets, daily range): BP systolic 111–160; BP diastolic 59–96; PULSE 63–71; TEMP 97.4–98
[~2018-09-25 08:10] MED LIST changes: +PLAVIX 75MG TAB75 MG PO; +REMERON30 MG PO
[2018-09-25] MEDS ORDERED: NORVASC 10MG10 MG PO (09:56)
[2018-09-25] MEDS ORDERED: ASPIRIN E.C. 8181 MG PO (09:56)
[2018-09-25] MEDS ORDERED: LIPITOR 80MG80 MG PO (09:57)
[2018-09-25] MEDS ORDERED: PLAVIX 75MG TAB75 MG PO (09:58)
[2018-09-25] MEDS ORDERED: TOPROL XL 25MG25 MG PO (10:00)
[2018-09-25] MEDS ORDERED: NITROSTAT0.4 MG/TAB SL (10:02)
[2018-09-25] MEDS ORDERED: ALDACTONE 25MG25 M1 PO (10:02)
== END 2018-09-25 16:27 | disposition home or self-care (01) ==
LOC: COL.VAS 08:10
DX: T80.212A Local infection due to central venous catheter, initial encounter (principal); N18.6 End stage renal disease
CPT/HCPCS: G0365; J0690; J1644; J2250; J3010

== ENCOUNTER 2018-10-11 08:04 | Day surgery (SDC) | payer MEDICARE, BC ==
[2005-12-08 15:01] VITALS: BP 138/79
[2018-10-11] VITALS (7 sets, daily range): BP systolic 123–147; BP diastolic 60–78; PULSE 62–73; TEMP 97.8
[~2018-10-11] VITALS: Ht 162.6 cm; Wt 82.5 kg
[2018-10-11] MEDS ORDERED: ZOVIRAX 200MG200 MG PO (09:27)
[2018-10-11 09:35] LABS: CALCIUM 9.8 mg/dL (8.4-10.2); POTASSIUM 4.5 mmol/L (3.4-5.0)
[2018-10-11] MEDS ORDERED: AMBIEN 5MG TABLE5 MG PO (09:40)
[2018-10-11] MEDS ORDERED: NORVASC 5MG5 MG/TAB PO (09:41)
[2018-10-11] MEDS ORDERED: ABILIFY2 MG PO (09:41)
[2018-10-11] MEDS ORDERED: LEXAPRO 10MG10 MG PO (09:42)
[2018-10-11] MEDS ORDERED: ATIVAN 1MG T1 MG/TAB PO (09:43)
[2018-10-11] MEDS ORDERED: LOPRESSOR 225 MG/TAB PO (09:44)
[2018-10-11 09:47] LABS: CREATININE, serum 4.43 mg/dL (0.52-1.25)
--- NOTE | 2018-10-11 11:10 | NUR ---
Patient returns to room 5 per cart from surgery and is awake and alert. Temp 98.5 and room air sats 92%. IV fluids infusing and denies left arm pain or nausea. Incision noted to the left antecubital area dry and no drainage noted. Faint thrill palpated. Given water to sip on. Allowed to rest. Call light in reach and siderails up x2.
--- NOTE | 2018-10-11 11:25 | NUR ---
Eating muffin and drinking juice. Room air sats 93%. Denies pain or nausea.
--- NOTE | 2018-10-11 11:40 | NUR ---
Fistula site on the left arm bruised but soft to touch and no drainage from the incision. Faint thrill palpated.
--- NOTE | 2018-10-11 11:55 | NUR ---
Resting and denies pain or nausea. Ride home will be here approximately 1330.
--- NOTE | 2018-10-11 12:10 | NUR ---
Resting and awaits ride home.
--- NOTE | 2018-10-11 12:40 | NUR ---
Continues to rest without complaints of pain or nausea.
--- NOTE | 2018-10-11 13:05 | NUR ---
Patient assisted up to the bathroom and is able to void and returns to room. INT discontinued and pressure held on site. Allowed to dress self.
--- NOTE | 2018-10-11 13:20 | NUR ---
Dismissal instructions signed. Voices understanding of these.
--- NOTE | 2018-10-11 13:44 | NUR ---
Patient dismissed to home per private vehicle driven by friend with dismissal instructions in hand and taken to the car per wheelchair by RN.
== END 2018-10-11 13:44 | disposition home or self-care (01) ==
LOC: SDCO 08:04
PROVIDERS: Surgery
DX: I13.2 Hypertensive heart and chronic kidney disease with heart failure and with stage 5 chronic kidney disease, or end stage renal disease (principal); N18.6 End stage renal disease; I50.9 Heart failure, unspecified; Z99.2 Dependence on renal dialysis; D63.1 Anemia in chronic kidney disease; C90.00 Multiple myeloma not having achieved remission; G47.00 Insomnia, unspecified; G47.33 Obstructive sleep apnea (adult) (pediatric); J44.9 Chronic obstructive pulmonary disease, unspecified; E78.5 Hyperlipidemia, unspecified; M81.0 Age-related osteoporosis without current pathological fracture; Z80.1 Family history of malignant neoplasm of trachea, bronchus and lung; Z80.8 Family history of malignant neoplasm of other organs or systems; Z80.9 Family history of malignant neoplasm, unspecified; Z87.891 Personal history of nicotine dependence; Z79.899 Other long term (current) drug therapy; Z79.82 Long term (current) use of aspirin; E03.9 Hypothyroidism, unspecified; M10.30 Gout due to renal impairment, unspecified site; F32.9 Major depressive disorder, single episode, unspecified; G89.29 Other chronic pain; M54.5 Low back pain; I25.10 Atherosclerotic heart disease of native coronary artery without angina pectoris; K21.9 Gastro-esophageal reflux disease without esophagitis; F41.9 Anxiety disorder, unspecified; N81.89 Other female genital prolapse
CPT/HCPCS: J0690; J1644; J2704; J2765; J3010; J7030

== ENCOUNTER 2018-12-02 10:09 | Inpatient (IN) | payer MEDICARE, BC ==
[2005-12-08 15:01] VITALS: BP 138/79
[~2018-12-02] VITALS: Ht 162.6 cm; Wt 86.4 kg
[~2018-12-02 10:09] MED LIST changes: +LOPRESSOR 225 MG/TAB PO; +ZOVIRAX 200MG200 MG PO
[2018-12-02 10:54] LABS: BASO % 0.2 % (0.0-2.0); GRAN % 84.1 % (42.2-75.2); HEMATOCRIT 44.7 % (37.0-47.0); LYMPH # 1.3 (1.2-3.4); LYMPH % 8.9 % (20.0-51.0); MEAN CELL VOLUME 96 fl (80.0-100.0); MEAN CORPUSCULAR HEMOGLOBIN 32 pg (27.0-31.0); MEAN CORPUSCULAR HGB CONC 34 g/dl (33.0-37.0); MEAN PLATELET VOLUME 10.3 fl (7.4-10.4); MONO # 0.9 (0.1-0.6); MONO % 6.4 % (1.7-9.3); PLATELET COUNT 220 K/mm3 (130-400); RED BLOOD COUNT 4.68 M/mm3 (4.10-5.30); REDCELL DISTRIBUTION WIDTH-CV 15.1 % (11.5-14.5)
[2018-12-02 11:09] LABS: ALANINE AMINOTRANSFERASE 14 U/L (9-52); ALBUMIN 4.4 gm/dL (3.5-5.0); ALKALINE PHOSPHATASE 67 U/L (50-136); ANION GAP 13 mmol/L (7-16); AST,SGOT 54 U/L (15-37); BILIRUBIN,TOTAL 0.5 mg/dL (0.0-1.0); BLOOD UREA NITROGEN 49 mg/dL (7-17); CALCIUM 9.7 mg/dL (8.4-10.2); CARBON DIOXIDE 25 mmol/L (22-30); CHLORIDE 101 mmol/L (98-107); GLUCOSE 149 mg/dL (74-106); LIPASE 132 U/L (23-300); POTASSIUM 4.4 mmol/L (3.4-5.0); SODIUM 139 mmol/L (137-145); TOTAL PROTEIN 8.9 gm/dL (6.4-8.2)
[2018-12-02 11:10] LABS: C-REACTIVE PROTEIN < 0.5 mg/dL (0.0-0.9)
[2018-12-02 11:12] LABS: CREATININE, serum 4.66 mg/dL (0.52-1.25)
[2018-12-02 11:26] LABS: TROPONIN-I 2.24 ng/mL (0.000-0.035)
[2018-12-02] MEDS ORDERED: ATIVAN 0.50.5 MG/TAB PO (13:37)
[2018-12-02] MEDS ORDERED: LOPRESSOR 225 MG/TAB PO ×2 (15:10→15:35)
--- NOTE | 2018-12-02 15:30 | NUR ---
Pt arrived to room 316 at this time. She is A/O x3. Her breathing is even and unlabored on RA. Pt denies SOB. Denies any chest pain or abdominal pain at this time. Dialysis catheter in place to R chest, CDI. Bruit auscultated and thrill palpated to MERCEDEZE. POC discussed with patient who verbalizes understanding. Call light within reach.
[2018-12-02 17:00] VITALS: BP 171/95; PULSE 76; TEMP 99
[2018-12-02 18:24] VITALS: BP 173/95; PULSE 75; TEMP 99.1
[2018-12-02 18:26] LABS: COLLECTION METHOD CLEAN CATCH
[2018-12-02 18:44] LABS: PH 5 (5-8); URINE APPEARANCE Hazy; URINE BACTERIA None Seen /hpf; URINE BILIRUBIN Negative (NEGATIVE); URINE BLOOD 2+ (NEGATIVE); URINE COLOR Yellow; URINE GLUCOSE 1+ (NEGATIVE); URINE KETONE Negative (NEGATIVE); URINE LEUKOCYTE ESTERASE Negative (NEGATIVE); URINE NITRATE Negative (NEGATIVE); URINE PROTEIN(semi-quant) 3+ (NEGATIVE); URINE UROBILINOGEN Negative (NEGATIVE)
[2018-12-02 19:48] VITALS: BP 176/90; PULSE 81; TEMP 100
--- NOTE | 2018-12-02 21:59 | NUR ---
Completed assessment and medication administration; PT tolerated all cared and medications well; PT alert and intermittent confusion concerning present admission and diagnosis; PT required reeducation of current diagnosis and reason for visit; PT reported chest and abdominal pain at shift change with relief reported post PRN medication administration; SBA for AMB needs; PT denied further needs; Call light reeducated and placed within reach; Will continue to monitor. CDA
[2018-12-03] VITALS (257 sets, daily range): BP systolic 73–169; BP diastolic 55–110; PULSE 71–132; TEMP 98–98.8; O2SAT 71–98
--- NOTE | 2018-12-03 02:08 | NUR ---
PT resting well in bed; No acute complaints at time of arounds; call light within reach; Will continue to monitor. CDA
--- NOTE | 2018-12-03 05:24 | NUR ---
Received new orders from Dr. Lara for Lopressor 25mg one time dose, Norvasc 2.5mg one time dose, and change to Dilaudid 0.4mg from q12h to q6h PRN for pain. TORB and processed. CDA
--- NOTE | 2018-12-03 05:45 | NUR ---
Dr. Lara notified on maintained irregular HR; EKG showed AFib RVR; No new medical interventions per Dr. Lara; Outcome: Continue observation and recent medication interventions for hypertention and tachycardia. Will continue to monitor. CDA
[2018-12-03 06:42] LABS: BASO % 0.3 % (0.0-2.0); EOS % 0.4 % (0-4.0); GRAN # 8.3 (1.4-6.5); GRAN % 77.8 % (42.2-75.2); HEMATOCRIT 40.4 % (37.0-47.0); HEMOGLOBIN 13.4 g/dl (12.5-16.0); LYMPH # 1.4 (1.2-3.4); LYMPH % 13.4 % (20.0-51.0); MEAN CELL VOLUME 95 fl (80.0-100.0); MEAN CORPUSCULAR HEMOGLOBIN 32 pg (27.0-31.0); MEAN CORPUSCULAR HGB CONC 33 g/dl (33.0-37.0); MEAN PLATELET VOLUME 10.5 fl (7.4-10.4); MONO # 0.8 (0.1-0.6); MONO % 7.6 % (1.7-9.3); PLATELET COUNT 171 K/mm3 (130-400); RED BLOOD COUNT 4.26 M/mm3 (4.10-5.30); REDCELL DISTRIBUTION WIDTH-CV 14.6 % (11.5-14.5)
--- NOTE | 2018-12-03 06:52 | NUR ---
Report given to HAM Agosto. CDA
[2018-12-03 06:53] LABS: CALCIUM 8.9 mg/dL (8.4-10.2); POTASSIUM 4.7 mmol/L (3.4-5.0)
[2018-12-03 07:19] LABS: CREATININE, serum 4.26 mg/dL (0.52-1.25)
--- NOTE | 2018-12-03 07:52 | NUR ---
Pt down for dialysis at this time.
--- NOTE | 2018-12-03 12:00 | NUR ---
REPORT RECEIVED FROM DIEGO CHEEK ON MEDICAL FLOOR. PT TRANSFERRED FROM DIALYSIS FROM [facility], [facility]TRY LEVEL [facility]JECT [facility]INE[facility], TO ICU ROOM 8 VIA WHEELCHAIR. PT AWAKE, ALERT, AND ORIENTED. PT HAS CARDIZEM GTT IN INFUSING AT 7.5MG/HR. HR IRREGULAR WITH A RATE OF 114 AT THIS TIME. BP 106/82.
--- NOTE | 2018-12-03 12:01 | NUR ---
Pt report given to HAM Meraz in ICU.
--- NOTE | 2018-12-03 13:05 | NUR ---
Patient lives at home alone in [place], [place] as she is yet has two daughters who are supportive and help with medical care as needed. Patient receives dialysis 3x week (Tuesday, , Tuesday) and is a retired domestic entry level electrical engineer. Patient has no durable medical equipment needs at this time, her primary care physician is Bandar Tanner along with medical care from [facility] and Gustavo Quiroz as needed, her pharmacy is [facility], and she does have advance directives completed. No further needs and manager social work will follow as needed.
--- NOTE | 2018-12-03 19:33 | NUR ---
Report received from HAM Meraz. Resting in bed. Request 2100 early. Will provide for patient. Denies other needs.
--- NOTE | 2018-12-03 21:04 | NUR ---
Up to restroom and returned to bed. Reports 4/10 generalized ABD pain. Denies need for pain medication at this time. Assessment complete. Lungs clear. Heart sounds irregular and tachycardic. Bowels active x4. Bilateral lower leg edema +1. Provided with 2100 medications. Placed on 2 liters nasal cannula while sleeping. Denies other needs at this time. Cardizem infusing at 15ml/hr in to RAC. Will closely monitor.
--- NOTE | 2018-12-03 22:21 | NUR ---
2200 blood pressure 83/58. Rechecked at 2205 78/55. Pulse 74. Decreased cardizem drip to 10ml/hr and contacted Dr. Lara. New orders to decrease cardizem drip to 5ml/hr and monitor blood pressure and pulse closely, call if blood pressure remains hypotensive. Patient asymptomatic at this time. Will closely monitor.
[2018-12-04] VITALS (380 sets, daily range): BP systolic 94–170; BP diastolic 62–83; PULSE 53–79; TEMP 97.4–98.7; O2SAT 82–98
--- NOTE | 2018-12-04 00:10 | NUR ---
Patient convert to normal sinus rhythm, rate in 50s. Blood pressure continues to be hypotensive. Spoke with Dr. Lara. Discontinue cardizem. Discontinued at 0010.
--- NOTE | 2018-12-04 02:05 | NUR ---
Asleep in bed. Pulse remains 50-60s. Blood pressures improving, as of 020 111/72.
--- NOTE | 2018-12-04 04:36 | NUR ---
Reports 05/19 ABD pain. Requesting PRN dilaudid. Provided for patient. Denies other needs. Call light in reach.
[2018-12-04 05:58] LABS: BASO % 0.4 % (0.0-2.0); EOS # 0.1 (0.0-0.7); EOS % 1.6 % (0-4.0); GRAN # 4.6 (1.4-6.5); GRAN % 62.7 % (42.2-75.2); HEMATOCRIT 42.8 % (37.0-47.0); HEMOGLOBIN 13.7 g/dl (12.5-16.0); LYMPH # 1.9 (1.2-3.4); LYMPH % 25.8 % (20.0-51.0); MEAN CELL VOLUME 97 fl (80.0-100.0); MEAN CORPUSCULAR HEMOGLOBIN 31 pg (27.0-31.0); MEAN CORPUSCULAR HGB CONC 32 g/dl (33.0-37.0); MEAN PLATELET VOLUME 10.5 fl (7.4-10.4); MONO # 0.7 (0.1-0.6); MONO % 9.1 % (1.7-9.3); PLATELET COUNT 184 K/mm3 (130-400); RED BLOOD COUNT 4.42 M/mm3 (4.10-5.30); REDCELL DISTRIBUTION WIDTH-CV 14.7 % (11.5-14.5)
[2018-12-04 06:10] LABS: POTASSIUM 4.5 mmol/L (3.4-5.0)
--- NOTE | 2018-12-04 06:23 | NUR ---
Request 0700 levothyroxin and protonix to be given after dialysis. Hypotensive throughout night. This AM blood pressures improved, systolic ranging in 90s to 120s. Cardizem drip discontinued at 0005. Dr. Lara made aware at time of conversion to normal sinus rhythm. Pulse now in 70s. Sitting at bedside this AM. Denies needs. Call light in reach.
[2018-12-04 06:27] LABS: CREATININE, serum 4.46 mg/dL (0.52-1.25)
--- NOTE | 2018-12-04 07:00 | NUR ---
BEDSIDE REPORT RECEIVED FROM HAM OCHOA. PATIENT IS SITTING UP ON SIDE OF BED EATING BREAKFAST. PLAN FOR HD THIS MORNING.
--- NOTE | 2018-12-04 08:00 | NUR ---
PATIENT TAKEN TO [facility] ROOM 18 FOR DIALYSIS.
--- NOTE | 2018-12-04 11:29 | NUR ---
The patient is to be transferred up to the floor today, 12/04. SW to continue to follow.
--- NOTE | 2018-12-04 11:34 | NUR ---
REPORT CALLED TO HAM DASH ON MEDICAL
--- NOTE | 2018-12-04 11:37 | NUR ---
PATIENT FINISHED WITH HEMODIALYSIS AT THIS TIME.
--- NOTE | 2018-12-04 12:05 | NUR ---
PATIENT TAKEN TO ROOM 355. HAM DASH THERE TO WELCOME HER. CARE TURNED OVER AT THIS TIME.
--- NOTE | 2018-12-04 12:30 | NUR ---
Arrived to the room at this time. Oriented to the room. No pain reported. The call light is in place.
--- NOTE | 2018-12-04 18:56 | NUR ---
PRN pain and nausea reported throughout the shift. PRN medications provided as needed. No emesis, or BM noted this afternoon. Report given to HAM Hinson to resume care. The call light is in place.
[2018-12-05] VITALS (7 sets, daily range): BP systolic 103–128; BP diastolic 57–73; PULSE 54–65; TEMP 97.6–98.5
--- NOTE | 2018-12-05 00:01 | NUR ---
Completed medication administration and assessment; PT tolerated all cares and medication well. PT reported pain at shift change; administrated PRN pain medication to assisted with reported pain. A&Ox3, BS active x4, bilateral diminished bases; PT listed and documented as DNR; PT scheduled for dialysis tomorrrow 12/05/18, NPO after midnight for scheduled EGD 12/05/18 at 1215; PT denied futher needs at time of exit; PT placed in a comfortable position in bed; Call light placed within reach; Will continue to monitor. CDA
--- NOTE | 2018-12-05 03:05 | NUR ---
PT resting well in supine position in bed; PT reported pain throughout night; Verbalizing that the pain has been "more controlled"; Last dose of [place] given with a verbalized 7/10 pain using the numeric pain scale; No further needs at this time; Call light within reach; Will continue to monitor. CDA
[2018-12-05 06:53] LABS: BASO # 0.1 (0.0-0.2); BASO % 0.6 % (0.0-2.0); EOS # 0.4 (0.0-0.7); EOS % 4.9 % (0-4.0); GRAN # 4.7 (1.4-6.5); LYMPH % 25.9 % (20.0-51.0); MEAN CELL VOLUME 98 fl (80.0-100.0); MEAN CORPUSCULAR HGB CONC 32 g/dl (33.0-37.0); MEAN PLATELET VOLUME 10.7 fl (7.4-10.4); MONO # 0.6 (0.1-0.6); MONO % 7.5 % (1.7-9.3); PLATELET COUNT 157 K/mm3 (130-400); RED BLOOD COUNT 3.66 M/mm3 (4.10-5.30); REDCELL DISTRIBUTION WIDTH-CV 14.6 % (11.5-14.5)
[2018-12-05 07:02] LABS: HEMOGLOBIN 11.5 g/dl (12.5-16.0); MEAN CORPUSCULAR HEMOGLOBIN 31 pg (27.0-31.0)
--- NOTE | 2018-12-05 07:11 | NUR ---
Report given to HAM Swanson. CDA
[2018-12-05 07:12] LABS: CALCIUM 8.3 mg/dL (8.4-10.2); POTASSIUM 4.7 mmol/L (3.4-5.0)
[2018-12-05 07:23] LABS: CREATININE, serum 4.47 mg/dL (0.52-1.25)
--- NOTE | 2018-12-05 08:20 | NUR ---
Assessment complete. Pt sitting up in bed, A&O x 4. Breath sounds CTAB. BS active x 4. Pt reports minimal pain to upper abd, 2 out of 10 on pain scale. Saline lock IV to right AC without s/s of complications. AV Fistula to left upper arm with strong thrill to palpation. HD catheter to right chest without s/s of complications. POC reviewed with pt. No further needs reported. Call light in reach.
--- NOTE | 2018-12-05 09:43 | NUR ---
Pt reports abdominal pain is just starting to increase and is feeling a little nausea. PRN pain and nausea medication administered per orders. Pt informed there is no plan for dialysis today, just the EGD. Pt verbalizes understanding. No further needs reported. Call light in reach.
--- NOTE | 2018-12-05 11:50 | NUR ---
Pt reports abd pain still not decreasing following administration of [place], rating pain 8 out of 10 on pain scale. PRN Dilaudid administered per orders. No further needs reported. Call light in reach.
--- NOTE | 2018-12-05 12:30 | NUR ---
Pt to endo for procedure via cart.
--- NOTE | 2018-12-05 13:10 | NUR ---
Pt back to room from endo following procedure, awake and alert. VSS. POC reviewed with pt. Call light in reach.
--- NOTE | 2018-12-05 16:49 | NUR ---
Pt reports waking up with increased abd pain, rating 9 out of 10 on pain scale. PRN IV pain medication administered per orders. No further needs reported. Call light in reach.
--- NOTE | 2018-12-05 19:45 | NUR ---
Shift assessment complete. Pt resting in bed, awake, a&o, cooperative c cares. Pt reports continued abd pain rated "6/10" et reports "it's getting a little better"; PRN pain medical clerical assistant per pr request. Pt denies other c/o. INT patent. Tele in place. Call light in reach. Will monitor.
[2018-12-06 07:37] VITALS: BP 143/78; PULSE 118; PULSE 57; TEMP 98.4
[2018-12-06 08:08] LABS: BASO % 0.4 % (0.0-2.0); EOS # 0.6 (0.0-0.7); EOS % 7.7 % (0-4.0); GRAN # 4.2 (1.4-6.5); GRAN % 57.9 % (42.2-75.2); HEMOGLOBIN 10.9 g/dl (12.5-16.0); LYMPH # 1.9 (1.2-3.4); LYMPH % 26.4 % (20.0-51.0); MEAN CELL VOLUME 97 fl (80.0-100.0); MEAN CORPUSCULAR HEMOGLOBIN 32 pg (27.0-31.0); MEAN CORPUSCULAR HGB CONC 33 g/dl (33.0-37.0); MEAN PLATELET VOLUME 11.1 fl (7.4-10.4); MONO # 0.5 (0.1-0.6); MONO % 7.5 % (1.7-9.3); PLATELET COUNT 142 K/mm3 (130-400); RED BLOOD COUNT 3.45 M/mm3 (4.10-5.30); REDCELL DISTRIBUTION WIDTH-CV 14.6 % (11.5-14.5)
[2018-12-06 08:09] LABS: HEMATOCRIT 33.3 % (37.0-47.0)
[2018-12-06 08:19] LABS: CALCIUM 7.7 mg/dL (8.4-10.2); POTASSIUM 4.5 mmol/L (3.4-5.0)
--- NOTE | 2018-12-06 08:19 | NUR ---
Pt sitting on side of bed, morning assesment completed and medications adminstered per emar. Pt states she is in pain on 8 out of 0-10. Explained she is not able to get pain meds at this time, pt denies any other needs. Pt eating breakfast and will go to dialysis after bre[place]. Call light in reach.
[2018-12-06 08:38] LABS: CREATININE, serum 5.72 mg/dL (0.52-1.25)
--- NOTE | 2018-12-06 14:39 | NUR ---
Pt given dilaudid, pt complained norco did nothing for her back pain and she was still at an 8 on scale 0-10. Pt resting comfortably in bed. Call light in reach.
[2018-12-06 16:43] VITALS: BP 150/73; PULSE 66; TEMP 98.7
--- NOTE | 2018-12-06 17:21 | NUR ---
Pt laying in bed on her right side. Pt complaing of pain, will be able to have medication in one hour. Pt informed she will be discharged tomorrow morning. No other needs voiced, call light in reach.
[2018-12-06 20:23] VITALS: BP 137/70; PULSE 77; TEMP 98.8
[2018-12-07 00:12] VITALS: BP 107/51; PULSE 57; TEMP 97.7
--- NOTE | 2018-12-07 00:44 | NUR ---
Completed assessment and medication administration; PT toelrated all cares well; PT denies need for further pain medication at this time. PT A&Ox3, BS active x4, LCTA throughout with bilateral BB; PT able to return to a comfortable position in bed with call light in reach; PT denies further assistance at this time; Will continue to monitor. CDA
== END 2018-12-07 15:25 | disposition home or self-care (01) | DRG 280 ==
LOC: COL.ER 10:09 → ICU 14:50 → MEDICAL 14:50 → ICU 12-03 12:14 → MEDICAL 12-03 12:14 → ICU 12-04 12:07 → MEDICAL 12-04 12:07
PROVIDERS: Internal Medicine; Nurse Practitioner; ADMIT Internal Medicine Nephrology
PROC: 5A1D70Z Performance of Urinary Filtration, Intermittent, Less than 6 Hours Per Day (ICD-10-PCS; principal; 2018-12-03)
PROC: 0DB78ZX Excision of Stomach, Pylorus, Via Natural or Artificial Opening Endoscopic, Diagnostic (ICD-10-PCS; 2018-12-05)
DX: I13.2 Hypertensive heart and chronic kidney disease with heart failure and with stage 5 chronic kidney disease, or end stage renal disease (principal); I21.4 Non-ST elevation (NSTEMI) myocardial infarction; N18.6 End stage renal disease; I50.32 Chronic diastolic (congestive) heart failure; R11.2 Nausea with vomiting, unspecified; Z99.2 Dependence on renal dialysis; Z87.891 Personal history of nicotine dependence; K29.70 Gastritis, unspecified, without bleeding; K80.20 Calculus of gallbladder without cholecystitis without obstruction; E87.79 Other fluid overload; I25.10 Atherosclerotic heart disease of native coronary artery without angina pectoris; Z95.5 Presence of coronary angioplasty implant and graft; E78.5 Hyperlipidemia, unspecified; J44.9 Chronic obstructive pulmonary disease, unspecified; G47.33 Obstructive sleep apnea (adult) (pediatric); M35.3 Polymyalgia rheumatica; Z85.79 Personal history of other malignant neoplasms of lymphoid, hematopoietic and related tissues; Z88.4 Allergy status to anesthetic agent; Z88.1 Allergy status to other antibiotic agents; Z66 Do not resuscitate; K21.0 Gastro-esophageal reflux disease with esophagitis
CPT/HCPCS: J0882; J1170; J1644; J2405; J2704; J2916; J7030

== ENCOUNTER 2019-01-22 19:09 | Emergency (ER) | payer MEDICARE, BC ==
[2005-12-08 15:01] VITALS: BP 138/79
[~2019-01-22] VITALS: Ht 162.6 cm; Wt 87.7 kg
[2019-01-22 19:13] VITALS: TEMP 97.6
[2019-01-22 19:58] LABS: BASO % 0.5 % (0.0-2.0); EOS # 0.1 (0.0-0.7); EOS % 1.5 % (0-4.0); GRAN # 4.1 (1.4-6.5); GRAN % 66.9 % (42.2-75.2); HEMOGLOBIN 10.9 g/dl (12.5-16.0); LYMPH # 1.3 (1.2-3.4); LYMPH % 20.6 % (20.0-51.0); MEAN CELL VOLUME 97 fl (80.0-100.0); MEAN CORPUSCULAR HEMOGLOBIN 33 pg (27.0-31.0); MEAN CORPUSCULAR HGB CONC 34 g/dl (33.0-37.0); MEAN PLATELET VOLUME 11.6 fl (7.4-10.4); MONO # 0.6 (0.1-0.6); MONO % 10.2 % (1.7-9.3); PLATELET COUNT 143 K/mm3 (130-400); RED BLOOD COUNT 3.33 M/mm3 (4.10-5.30)
[2019-01-22 19:59] LABS: HEMATOCRIT 32.3 % (37.0-47.0)
[2019-01-22 20:08] LABS: ALANINE AMINOTRANSFERASE 18 U/L (9-52); ALBUMIN 4.1 gm/dL (3.5-5.0); ALKALINE PHOSPHATASE 69 U/L (50-136); ANION GAP 11 mmol/L (7-16); AST,SGOT 29 U/L (15-37); BILIRUBIN,TOTAL 0.4 mg/dL (0.0-1.0); BLOOD UREA NITROGEN 67 mg/dL (7-17); CALCIUM 10.5 mg/dL (8.4-10.2); CARBON DIOXIDE 26 mmol/L (22-30); CHLORIDE 101 mmol/L (98-107); GLUCOSE 112 mg/dL (74-106); LIPASE 120 U/L (23-300); POTASSIUM 4.2 mmol/L (3.4-5.0); SODIUM 138 mmol/L (137-145); TOTAL PROTEIN 8.2 gm/dL (6.4-8.2)
[2019-01-22 20:11] LABS: C-REACTIVE PROTEIN < 0.5 mg/dL (0.0-0.9)
[2019-01-22 20:12] LABS: CREATININE, serum 5.53 (0.52-1.25)
[2019-01-22] MEDS ORDERED: NORVASC 5MG5 MG/TAB (20:51)
[2019-01-22] MEDS ORDERED: DESYREL 50MG50 MG (20:57)
[2019-01-22 21:43] LABS: COLLECTION METHOD CLEAN CATCH
[2019-01-22 21:56] LABS: PH 5 (5-8); SQUAMOUS EPITHELIAL 0-2 /hpf; URINE APPEARANCE Clear; URINE BACTERIA Rare /hpf; URINE BILIRUBIN Negative (NEGATIVE); URINE BLOOD Negative (NEGATIVE); URINE COLOR Straw; URINE GLUCOSE Negative (NEGATIVE); URINE KETONE Negative (NEGATIVE); URINE LEUKOCYTE ESTERASE Negative (NEGATIVE); URINE NITRATE Negative (NEGATIVE); URINE PROTEIN(semi-quant) 2+ (NEGATIVE); URINE RBC None Seen /hpf; URINE UROBILINOGEN Negative (NEGATIVE)
[2019-01-22 23:25] VITALS: BP 146/84; PULSE 81
== END 2019-01-22 23:26 | disposition home or self-care (01) ==
LOC: COL.ER 19:09
PROVIDERS: Emergency Medicine
DX: M54.5 Low back pain (principal); R10.31 Right lower quadrant pain; I25.10 Atherosclerotic heart disease of native coronary artery without angina pectoris; I13.2 Hypertensive heart and chronic kidney disease with heart failure and with stage 5 chronic kidney disease, or end stage renal disease; N18.6 End stage renal disease; I50.9 Heart failure, unspecified; J44.9 Chronic obstructive pulmonary disease, unspecified; E78.5 Hyperlipidemia, unspecified; M35.3 Polymyalgia rheumatica
CPT/HCPCS: J2270; J2405

== ENCOUNTER → 2019-03-01 | Outpatient (CLI) | payer MEDICARE, BC ==
[2005-12-08 15:01] VITALS: BP 138/79
[~2019-03-01] VITALS: Ht 162.6 cm; Wt 77.3 kg
[~2019-03-01] MED LIST changes: +DESYREL 50MG50 MG; +NORVASC 5MG5 MG/TAB
[2019-03-01 12:18] VITALS: BP 163/98; PULSE 86
[2019-03-01 12:50] VITALS: BP 188/104; PULSE 87
--- NOTE | 2019-03-01 13:25 | NUR ---
PT TAKEN TO POV IN WHEELCHAIR
== END ==
LOC: COL.RAD 11:43
DX: Z49.01 Encounter for fitting and adjustment of extracorporeal dialysis catheter (principal); N18.6 End stage renal disease

== ENCOUNTER 2019-07-21 07:02 | Inpatient (IN) | payer MEDICARE, BC ==
[~2019-07-21] VITALS: Ht 162.6 cm; Wt 91.0 kg
[~2019-07-21 07:02] MED LIST changes: -DESYREL 50MG50 MG; +NEURONTIN300 MG/CAP PO; -NORVASC 5MG5 MG/TAB
[2019-07-21 07:43] LABS: ALBUMIN 4.6 gm/dL (3.5-5.0); BILIRUBIN,TOTAL 0.4 mg/dL (0.0-1.0); CALCIUM 9.9 mg/dL (8.4-10.2); CREATININE, serum 7.85 (0.52-1.25); MAGNESIUM 3.2 mg/dL (1.6-2.3); PHOSPHOROUS 3.8 mg/dL (2.5-4.5)
[2019-07-21 07:51] LABS: HEMATOCRIT 37.3 % (37.0-47.0); HEMOGLOBIN 11.8 g/dl (12.5-16.0); MEAN CELL VOLUME 110 fl (80.0-100.0); MEAN CORPUSCULAR HEMOGLOBIN 35 pg (27.0-31.0); MEAN CORPUSCULAR HGB CONC 32 g/dl (33.0-37.0); MEAN PLATELET VOLUME 11.1 fl (7.4-10.4); PLATELET COUNT 236 K/mm3 (130-400)
[2019-07-21 07:54] LABS: TROPONIN-I 0.015 ng/mL (0.000-0.035)
[2019-07-21 08:31] LABS: BAND 7 % (0-10); LYMPHOCYTE 6 % (20.0-51.0); NEUTROPHILS 87 % (42.0-75.2); PLATELET ESTIMATE NORMAL (NORMAL)
[2019-07-21] MEDS ORDERED: ABILIFY2 MG PO (09:03)
[2019-07-21] MEDS ORDERED: PLAVIX 75MG TAB75 MG PO (09:05)
[2019-07-21] MEDS ORDERED: ELIQUIS 2.5 PO (09:06)
[2019-07-21] MEDS ORDERED: PHOS LO PO (09:12)
[2019-07-21] MEDS ORDERED: ULTRAM 50MG TAB50 MG PO (10:11)
[2019-07-21 15:40] VITALS: BP 127/64; PULSE 65; TEMP 97.5
--- NOTE | 2019-07-21 16:20 | NUR ---
Pt arrived to room 310 at this time. She is A/O x4, very pleasant and conversive. She currently denies any pain. No SOB. Pt denies N/V, wanting to eat dinner. Fistula to LUE covered with dressing, CDI. IV to RAC intact. POC discussed with patient who verbalizes understanding. No needs at this time. Call light within reach.
[2019-07-21 19:31] VITALS: BP 121/65; PULSE 61; TEMP 97.8
--- NOTE | 2019-07-21 21:54 | NUR ---
Report received from HAM Agosto. Patient resting in bed. Assessment completed. Patient requested to receive her medications soon so she can go to bed. Pulses strong. Lungs CTA. Bowels active. Denies pain at this time. Very pleasant with cares. Denies any further needs at this time. Call light within reach.
[2019-07-21 23:25] VITALS: BP 123/70; PULSE 65; TEMP 98.1
[2019-07-22 03:21] VITALS: BP 148/71; PULSE 50; TEMP 97.7
--- NOTE | 2019-07-22 05:44 | NUR ---
Patient had uneventful night. Resting in bed. Requested items for a shower. Denied pain throughout night. No further needs expressed. Call light within reach.
--- NOTE | 2019-07-22 07:01 | NUR ---
Report given to HAM Hernandez
[2019-07-22 07:43] VITALS: BP 108/53; PULSE 66
--- NOTE | 2019-07-22 08:00 | NUR ---
Patient sitting up on the side of the bed eatting breakfast. A&Ox4. VSS. IV CDI, old drainage on dressing. Telemetry on chest. Denies pain and discomfort. No further needs expressed from patient. Call light within reach
[2019-07-22 12:42] VITALS: BP 140/50; PULSE 69; TEMP 97.9
--- NOTE | 2019-07-22 13:34 | NUR ---
Patient lives at home with her daughter in [place], [place] and plans to return home upon recovery. Patient's two daughters are supportive of patient's needs (Becky [address] [phone] and Carmenryanne Jimenez [phone]). Patient is mostly independent with daily living activities and is a retired Backend Python Developer. Patient is also a Jehovah Witness. Patient has no durable medical equipment anticipated needs at this time, her primary care physician is Dr. Bandar Tanner along with medical care from Dr. Yohannes Benton and Gustavo Quiroz as needed. Patient's pharmacy is [facility] and she does have advance directive of healthcare completed (DPOA is daughter Becky Street). No further needs at this time and social worker clinical will follow up as needed.
--- NOTE | 2019-07-22 17:00 | NUR ---
Discharge paperwork reviewed with patient. Patient verbalized an understanding of following the doctors orders. IV removed, tip intact, gauze and coban applied. Patient tolerated well. No further needs expressed from patient. Personal belongings and discharge paperwork with patient. Patient transfered by nursing staff by wheelchair to vehicle. Daughter with the patient.
== END 2019-07-22 17:00 | disposition home or self-care (01) | DRG 314 ==
LOC: COL.ER 07:02 → MEDICAL 09:42 → COL.ER 09:42 → MEDICAL 07-22 03:00
PROVIDERS: Emergency Medicine; ADMIT Internal Medicine Nephrology
PROC: 5A1D70Z Performance of Urinary Filtration, Intermittent, Less than 6 Hours Per Day (ICD-10-PCS; principal; 2019-07-21)
DX: I95.9 Hypotension, unspecified (principal); N18.6 End stage renal disease; I13.2 Hypertensive heart and chronic kidney disease with heart failure and with stage 5 chronic kidney disease, or end stage renal disease; E85.9 Amyloidosis, unspecified; E87.5 Hyperkalemia; I25.10 Atherosclerotic heart disease of native coronary artery without angina pectoris; I50.9 Heart failure, unspecified; E78.5 Hyperlipidemia, unspecified; I27.20 Pulmonary hypertension, unspecified; M35.3 Polymyalgia rheumatica; J44.9 Chronic obstructive pulmonary disease, unspecified; G47.33 Obstructive sleep apnea (adult) (pediatric); E03.9 Hypothyroidism, unspecified; D63.1 Anemia in chronic kidney disease; F41.9 Anxiety disorder, unspecified; F32.9 Major depressive disorder, single episode, unspecified; B00.1 Herpesviral vesicular dermatitis; Z79.891 Long term (current) use of opiate analgesic; Z99.2 Dependence on renal dialysis; Z95.5 Presence of coronary angioplasty implant and graft; Z87.891 Personal history of nicotine dependence; Z88.1 Allergy status to other antibiotic agents

== ENCOUNTER 2019-09-01 07:09 | Inpatient (IN) | payer MEDICARE, BC ==
[~2019-09-01] VITALS: Ht 160 cm; Wt 89.9 kg
[~2019-09-01 07:09] MED LIST changes: +ELIQUIS 2.5 PO; +LIDODERM 5% PATC1 EA TP; +PHOS LO PO; +ULTRAM 50MG TAB50 MG PO
[2019-09-01 07:34] LABS: BASO % 0.1 % (0.0-2.0); EOS # 0.1 (0.0-0.7); EOS % 0.9 % (0-4.0); GRAN # 8.7 (1.4-6.5); GRAN % 88.9 % (42.2-75.2); LYMPH # 0.3 (1.2-3.4); MEAN CELL VOLUME 109 fl (80.0-100.0); MEAN CORPUSCULAR HEMOGLOBIN 34 pg (27.0-31.0); MEAN CORPUSCULAR HGB CONC 31 g/dl (33.0-37.0); MEAN PLATELET VOLUME 11.6 fl (7.4-10.4); MONO # 0.7 (0.1-0.6); MONO % 6.9 % (1.7-9.3); PLATELET COUNT 134 K/mm3 (130-400); REDCELL DISTRIBUTION WIDTH-CV 12.7 % (11.5-14.5)
[2019-09-01 07:46] LABS: ALBUMIN 3.8 gm/dL (3.5-5.0); BILIRUBIN,TOTAL 0.2 mg/dL (0.0-1.0); C-REACTIVE PROTEIN 0.8 mg/dL (0.0-0.9); CALCIUM 8.8 mg/dL (8.4-10.2); CREATININE, serum 7.14 (0.52-1.25); MAGNESIUM 1.8 mg/dL (1.6-2.3); PHOSPHOROUS 4.8 mg/dL (2.5-4.5); POTASSIUM 4.5 mmol/L (3.4-5.0); TOTAL PROTEIN 7.2 gm/dL (6.4-8.2)
[2019-09-01] MEDS ORDERED: SYNTHROID0.137 MG (08:03)
[2019-09-01 14:16] VITALS: BP 84/43; PULSE 66; TEMP 97.4
--- NOTE | 2019-09-01 14:43 | NUR ---
Patient resting in bed. Report from Magdi in ER. Dialysis nurse brought patient to room 324. Inital completed by Jessica. 5 page assessment & med rec to re completed.
[2019-09-01] MEDS ORDERED: VELCADE3.5 MG IV (15:49)
[2019-09-01 16:27] VITALS: BP 105/49; PULSE 65; TEMP 98.8
--- NOTE | 2019-09-01 17:42 | NUR ---
Patient resting in room. ambulated halls with adult education teacher. completed med rec to best of my ability. 5 page complete. she report being hungry & ready for dinner.
[2019-09-01 20:00] VITALS: BP 102/48; PULSE 63; TEMP 97.5
--- NOTE | 2019-09-01 22:16 | NUR ---
RESTING QUIETLY. PT CONCERNED ABOUT WHAT'S CAUSING HER PAIN. PT STATES DR. LPOEZ IS OUT OF THE AREA. RESTING QUIETLY AT PRESENT.
[2019-09-02] VITALS: BP 103/51; PULSE 55; TEMP 97.9
[2019-09-02 03:56] VITALS: BP 139/66; PULSE 65; TEMP 97.9
[2019-09-02 06:25] LABS: BASO % 0.2 % (0.0-2.0); EOS # 0.5 (0.0-0.7); EOS % 3.1 % (0-4.0); GRAN # 11.7 (1.4-6.5); GRAN % 80.7 % (42.2-75.2); LYMPH # 1.4 (1.2-3.4); LYMPH % 9.4 % (20.0-51.0); MEAN CELL VOLUME 109 fl (80.0-100.0); MEAN CORPUSCULAR HGB CONC 31 g/dl (33.0-37.0); MONO # 0.9 (0.1-0.6); MONO % 6.3 % (1.7-9.3); PLATELET COUNT 116 K/mm3 (130-400); RED BLOOD COUNT 2.88 M/mm3 (4.10-5.30)
[2019-09-02 06:33] LABS: HEMATOCRIT 31.5 % (37.0-47.0); HEMOGLOBIN 9.9 g/dl (12.5-16.0); MEAN CORPUSCULAR HEMOGLOBIN 34 pg (27.0-31.0)
[2019-09-02 06:37] LABS: ALBUMIN 3.2 gm/dL (3.5-5.0); CALCIUM 8.2 mg/dL (8.4-10.2); CREATININE, serum 5.1 (0.52-1.25); PHOSPHOROUS 4.5 mg/dL (2.5-4.5); POTASSIUM 4.7 mmol/L (3.4-5.0)
[2019-09-02 08:18] VITALS: BP 132/55; PULSE 70; TEMP 97.4
--- NOTE | 2019-09-02 10:14 | NUR ---
Patient sitting up in bed upon shift assessment, had just finished eating her breakfast. States she is having pain in her back at 4/10. Patient has an implanted morphine pump. Lidocaine patch applied to back where the pain is the worst (lower right, just above buttocks). About an hour after patch application, patient stated that pain is still there and getting worse again as it has been recently. Pain wraps around to her lower right abdomen where her pain pump is. Ice applied to abdomen where pain is per patient's request. States this is what she does at home when she has increased pain that her pump doesn't help with. Warm blanket provided as well. Patient would like to just rest which is also what she does at home when she has increased pain. Call light in reach. Will continue to monitor.
[2019-09-02 11:50] VITALS: BP 110/55; PULSE 65; TEMP 97.9
--- NOTE | 2019-09-02 11:55 | NUR ---
Plan: To return home with Home health care through [facility]. Assess:SW met with patient about DC. Patient reports that she resides locally. Patient reports that she uses a walker as needed. Patient reports that she has a pain pump in her stomach. Patient indciated that she used home health care in the past and would like to use it again. Patient reports that her PCP is Dr. Tanner and she uses [facility] for her Medications. Patient reports that her DPOA is [address] . Patient reports that she thinks her DTRs numer is [phone] but is unsure of the accuracy. EMR records a number for the dtr as . Patient reports that she has an upc with Dr. Tanner next week. Action: CLAIR faxed referral to [facility] at [phone]. SW educated on community services and supports. Patient denies having any care concerns.
[2019-09-02 15:13] VITALS: BP 114/78; PULSE 69; TEMP 97.6
--- NOTE | 2019-09-02 19:41 | NUR ---
Patient's IV stopped working this afternoon. Two attempts were made to start a new IV without success. Dr. Harding contacted who gave instruction to leave IV out and discontinue telemetry. Dr. Harding ordered Levaquin to be started and to watch patient closely for a reaction due to other antibiotic allergies. This information was relayed in shift report.
[2019-09-02 20:01] VITALS: BP 111/61; PULSE 69; TEMP 98.1
--- NOTE | 2019-09-02 20:25 | NUR ---
Pt in bed. Bed alarm set. SCDs in place. No distress noted. Respirations even and unlabored. Lungs clear. O2@3L via NC- Spo2 97%. O2 decreased to 2L. Well tolerated. Abdomen soft, nontender. BS+. HS meds given. Pt is confused at times and repeats answers frequently. Able to appropriately answer orientation questions at this time. Pt has no IV access per MD. GALO fistula with guaze dressing. +bruit/thrill. Pt denies pain or needs at this time.
[2019-09-03 00:18] VITALS: BP 95/58; PULSE 51; TEMP 97.6
[2019-09-03 03:16] VITALS: BP 111/60; PULSE 58; TEMP 97.5
--- NOTE | 2019-09-03 06:15 | NUR ---
Pt has slept well throughout the shift without complaints. VSS. Neuro checks WNL except occasional confusion.
[2019-09-03 06:18] LABS: BASO % 0.2 % (0.0-2.0); EOS # 0.6 (0.0-0.7); EOS % 5.5 % (0-4.0); GRAN # 8.6 (1.4-6.5); GRAN % 75.4 % (42.2-75.2); LYMPH # 1.3 (1.2-3.4); LYMPH % 11.4 % (20.0-51.0); MEAN CELL VOLUME 110 fl (80.0-100.0); MEAN CORPUSCULAR HGB CONC 31 g/dl (33.0-37.0); MONO # 0.8 (0.1-0.6); PLATELET COUNT 128 K/mm3 (130-400); RED BLOOD COUNT 2.65 M/mm3 (4.10-5.30); REDCELL DISTRIBUTION WIDTH-CV 12.8 % (11.5-14.5)
[2019-09-03 06:21] LABS: HEMATOCRIT 29.2 % (37.0-47.0); HEMOGLOBIN 9.1 g/dl (12.5-16.0); MEAN CORPUSCULAR HEMOGLOBIN 34 pg (27.0-31.0)
[2019-09-03 06:30] LABS: ALBUMIN 3.2 gm/dL (3.5-5.0); CALCIUM 8.9 mg/dL (8.4-10.2); CREATININE, serum 7.74 (0.52-1.25); PHOSPHOROUS 5.7 mg/dL (2.5-4.5); POTASSIUM 4.5 mmol/L (3.4-5.0)
--- NOTE | 2019-09-03 08:00 | NUR ---
PATIENT IS ORIENTED X3 BUT DISPLAYS OCCATIONAL FORGETFULNESS. PATIENT IS ALSO FREQUENTLY DROWSY BUT C/O CHRONIC BACK PAIN WHEN AWAKE. PATIENT HAS PAIN PUMP AND DOSED HERSELF. APPLIED SCHEDULED LIDO PATCH TO LOWER BACK. PATIENT WAS UP IN CHAIR FOR BREAKFAST AND IS NOW BACK IN BED TO REST. HEAD TO TOE ASSESSMENT COMPLETE. AM MEDS GIVEN. PATIENT IS SCHEDULED TO HAVE DIALYSIS AROUND NOON TODAY. NO OTHER NEEDS. CALL LIGHT IN REACH. PATIENT RESTING.
[2019-09-03 08:42] VITALS: BP 105/51; PULSE 71; TEMP 97.9
--- NOTE | 2019-09-03 11:35 | NUR ---
PATIENT GOING D0WN TO DIALYSIS VIA WC. PATIENT USED HER PAIN PUMP THIS AM AND AGAIN BEFORE GOING TO DIALYSIS. SHORTLY AFTER USING IT PATIENT MENTIONED SHE FEELS WEAK AND SHAKY TODAY. DIALYSIS NURSE NOTIFIED AND WILL MONITOR.
--- NOTE | 2019-09-03 15:15 | NUR ---
PATIENT NOW BACK IN ROOM FROM DIALYSIS. DIALYSIS NURSE REPORTS SHE STOPPED TREATMENT A LITTLE EARLY DUE TO PATIENT INTOLERANCE. PATIENT RESTING IN ROOM NOW. NO NEEDS.
[2019-09-03 15:47] VITALS: BP 149/72; PULSE 70; TEMP 98.7
--- NOTE | 2019-09-03 18:00 | NUR ---
DAUGHTER AT BEDSIDE WITH SPECIFIC CONCERNS ABOUT THE PATIENT'S C/O PAIN AROUND HER PAIN PUMP SITE. DAUGHTER IS WANTING NURSING STAFF TO CALL PHYSICIAN. PHYSICIAN TALKED WITH DAUGHTER ON PHONE. DAUGHTER WOULD LIKE CONSULTED REGAURDING THE PAIN PUMP. WILL ROUND AGAIN IN AM. NO NEW ORDERS AT THIS TIME.
[2019-09-03 20:11] VITALS: BP 148/57; PULSE 71; TEMP 99.4
--- NOTE | 2019-09-03 21:45 | NUR ---
Resting in bed. Assessment complete. Lungs clear. Heart sounds normal. Bowels active x4. Pulses present throughout. Bilateral lower leg edema +1. Reports 4/10 back pain at this time. Patient has pain pump. Provided with scheduled medications. Fistula left upper arm bruit and thrill present. Left arm bruising present. Lidocaine patch removed from right lower back. Denies other needs at this time. Call light in reach.
--- NOTE | 2019-09-03 23:51 | NUR ---
Resting in bed. Drowsy at this time. Denies needs. Reports mild pain at pain pump site radiating to back. Will monitor. Call light in reach.
[2019-09-03 23:55] VITALS: BP 122/60; PULSE 65; TEMP 98
[2019-09-04 04:25] VITALS: BP 131/58; PULSE 64; TEMP 98.2
--- NOTE | 2019-09-04 06:32 | NUR ---
Patient had uneventful night. Resting in bed this AM. Call light in reach.
--- NOTE | 2019-09-04 06:55 | NUR ---
appears to be dozing but awakens easily, bedside shift report received from HAM Sal
--- NOTE | 2019-09-04 07:00 | NUR ---
Report given to HAM Ansrai
[2019-09-04 07:08] LABS: BASO % 0.2 % (0.0-2.0); EOS # 0.4 (0.0-0.7); EOS % 4.9 % (0-4.0); GRAN # 6.2 (1.4-6.5); GRAN % 71.2 % (42.2-75.2); LYMPH # 1.2 (1.2-3.4); LYMPH % 13.6 % (20.0-51.0); MEAN CELL VOLUME 106 fl (80.0-100.0); MEAN CORPUSCULAR HGB CONC 32 g/dl (33.0-37.0); MEAN PLATELET VOLUME 11.1 fl (7.4-10.4); MONO # 0.8 (0.1-0.6); MONO % 9.3 % (1.7-9.3); PLATELET COUNT 157 K/mm3 (130-400); RED BLOOD COUNT 2.79 M/mm3 (4.10-5.30); REDCELL DISTRIBUTION WIDTH-CV 12.5 % (11.5-14.5)
[2019-09-04 07:26] LABS: ALBUMIN 3.4 gm/dL (3.5-5.0); CREATININE, serum 5.42 (0.52-1.25); PHOSPHOROUS 3.5 mg/dL (2.5-4.5); POTASSIUM 4.1 mmol/L (3.4-5.0)
[2019-09-04 07:29] LABS: HEMATOCRIT 29.6 % (37.0-47.0); HEMOGLOBIN 9.5 g/dl (12.5-16.0); MEAN CORPUSCULAR HEMOGLOBIN 34 pg (27.0-31.0)
[2019-09-04 07:50] VITALS: BP 118/43; PULSE 63; TEMP 97.6
--- NOTE | 2019-09-04 08:15 | NUR ---
appears to be dozing, in bed with lights off and eyes closed, awakened for assessment, full assessment completed, see interventions for further info states is only having minimal pain, lidocaine patch placed per patient's request for placement, had breakfast and tolerated well
--- NOTE | 2019-09-04 10:00 | NUR ---
remains resting in bed, talking on phone, denies needs
--- NOTE | 2019-09-04 10:56 | NUR ---
up and abaout in room independently, friend in to visit
--- NOTE | 2019-09-04 11:27 | NUR ---
out of bed and on bench window seat visiting with a friend, denies needs or pain
[2019-09-04 12:18] VITALS: BP 144/64; PULSE 70; TEMP 98.5
--- NOTE | 2019-09-04 12:25 | NUR ---
resting in bed, had lunch and tolerated well, denies pain
--- NOTE | 2019-09-04 14:42 | NUR ---
is not c/o pain to right buttocks and up into back and requesting something for pain, explained she does not have anything ordered for pain and will need to call Dr Harding, verbalizes understanding
--- NOTE | 2019-09-04 14:49 | NUR ---
patient called nurse back to room and thinks her pain is because the lidocaine patch has rolled and is not in place, new lidocaine patch placed, will monitor
--- NOTE | 2019-09-04 15:40 | NUR ---
resting in bed lying on her right side, states putting a new lidocaine patch on has relieved the pain
--- NOTE | 2019-09-04 15:49 | NUR ---
Sash Assembler met with patient to follow up on Home Health. SW asked patient what services through HH she would be interested in and patient expressed that at this time she was not interested in setting up HH services. SW advised that if patient changes her mind she could assist in setting up services. Patient states she lives at home with her daughter Carmen (ph#[phone]) and plans to return home upon discharge. Patient reports she has no concerns about returning home at this time. SW to continue to follow as needed.
--- NOTE | 2019-09-04 16:30 | NUR ---
sitting up on side of bed visiting with friends, denies pain or needs
[2019-09-04 17:35] VITALS: BP 146/79; PULSE 78; TEMP 98.1
--- NOTE | 2019-09-04 18:23 | NUR ---
had supper and tolerated well, denies needs
--- NOTE | 2019-09-04 18:40 | NUR ---
resting in bed, bedside shift report given to Nargis RN
[2019-09-04 19:15] VITALS: BP 141/69; PULSE 66; TEMP 98.2
--- NOTE | 2019-09-04 20:30 | NUR ---
Patient ready for bed. Takes HS meds without difficulty. Is alert and oriented x4. Is to have dialysis in the AM.
[2019-09-05 03:16] VITALS: BP 133/63; PULSE 69; TEMP 97.7
--- NOTE | 2019-09-05 06:00 | NUR ---
Takes AM med without problem. Inquires about Dialysis, will advise when called.
[2019-09-05 07:40] VITALS: BP 118/61; PULSE 73; TEMP 97.4
[2019-09-05 09:48] LABS: BASO % 0.3 % (0.0-2.0); EOS # 0.4 (0.0-0.7); EOS % 5.5 % (0-4.0); GRAN # 5.8 (1.4-6.5); GRAN % 72.9 % (42.2-75.2); LYMPH # 0.9 (1.2-3.4); LYMPH % 11.1 % (20.0-51.0); MEAN CELL VOLUME 104 fl (80.0-100.0); MEAN CORPUSCULAR HGB CONC 33 g/dl (33.0-37.0); MEAN PLATELET VOLUME 10.4 fl (7.4-10.4); MONO # 0.7 (0.1-0.6); MONO % 9.2 % (1.7-9.3); PLATELET COUNT 172 K/mm3 (130-400); RED BLOOD COUNT 2.87 M/mm3 (4.10-5.30); REDCELL DISTRIBUTION WIDTH-CV 12.4 % (11.5-14.5)
[2019-09-05 09:49] LABS: HEMATOCRIT 29.9 % (37.0-47.0); HEMOGLOBIN 9.8 g/dl (12.5-16.0); MEAN CORPUSCULAR HEMOGLOBIN 34 pg (27.0-31.0)
[2019-09-05 09:56] LABS: ALBUMIN 3.6 gm/dL (3.5-5.0); CALCIUM 9.4 mg/dL (8.4-10.2); CREATININE, serum 4.89 (0.52-1.25); PHOSPHOROUS 2.9 mg/dL (2.5-4.5); POTASSIUM 3.8 mmol/L (3.4-5.0)
[2019-09-05] MEDS ORDERED: LEVAQUIN 5500 MG/TA1 PO (13:56)
[2019-09-05] MEDS ORDERED: Lidocaine 4% Patch TP (13:57)
--- NOTE | 2019-09-05 14:40 | NUR ---
Patient had dialysis this am, tolerated well. rounded & discharge orders obtained. Patient in a hurry to leave, her ride needed to leave. Quickly reviewed all discharge paperwork including home med list. Spoke to [facility] pharmacy who will be delivering her new scripts levaquin & lidoderm patches. Patient denies questions or concerns. Wheeled out with all belongings, friend to take her home.
== END 2019-09-05 14:40 | disposition home or self-care (01) | DRG 947 ==
LOC: COL.ER 07:09 → ICU 09:00 → SURG 13:58
PROVIDERS: Emergency Medicine; ADMIT Internal Medicine Nephrology
PROC: 5A1D70Z Performance of Urinary Filtration, Intermittent, Less than 6 Hours Per Day (ICD-10-PCS; principal; 2019-09-01)
PROC: 5A09357 Assistance with Respiratory Ventilation, Less than 24 Consecutive Hours, Continuous Positive Airway Pressure (ICD-10-PCS; 2019-09-01)
DX: R41.82 Altered mental status, unspecified (principal); J96.91 Respiratory failure, unspecified with hypoxia; N18.6 End stage renal disease; J96.92 Respiratory failure, unspecified with hypercapnia; I13.2 Hypertensive heart and chronic kidney disease with heart failure and with stage 5 chronic kidney disease, or end stage renal disease; I95.9 Hypotension, unspecified; T41.3X5A Adverse effect of local anesthetics, initial encounter; G89.29 Other chronic pain; I25.10 Atherosclerotic heart disease of native coronary artery without angina pectoris; I27.20 Pulmonary hypertension, unspecified; E78.5 Hyperlipidemia, unspecified; G47.33 Obstructive sleep apnea (adult) (pediatric); F41.9 Anxiety disorder, unspecified; F32.9 Major depressive disorder, single episode, unspecified; E03.9 Hypothyroidism, unspecified; J44.9 Chronic obstructive pulmonary disease, unspecified; I50.9 Heart failure, unspecified; Z99.2 Dependence on renal dialysis; Z95.5 Presence of coronary angioplasty implant and graft; Z79.01 Long term (current) use of anticoagulants; Z79.02 Long term (current) use of antithrombotics/antiplatelets; Z79.891 Long term (current) use of opiate analgesic; Z87.891 Personal history of nicotine dependence; Z88.1 Allergy status to other antibiotic agents; T42.6X5A Adverse effect of other antiepileptic and sedative-hypnotic drugs, initial encounter
CPT/HCPCS: J1170; J1644; J2270; J2310; J7030

== ENCOUNTER 2019-12-01 05:57 | Observation (INO) | payer MEDICARE, BC ==
[~2019-12-01] VITALS: Ht 162.6 cm; Wt 81.1 kg
[~2019-12-01 05:57] MED LIST changes: +LEVAQUIN 5500 MG/TA1 PO; +Lidocaine 4% Patch TP; +NORCO 325 MG-7.1 TAB PO; +REGLAN 10MG10 MG/TAB PO; +SYNTHROID0.137 MG PO; +VELCADE3.5 MG IV
[2019-12-01] MEDS ORDERED: ATIVAN 0.50.5 MG/TAB PO (06:27)
[2019-12-01 06:30] LABS: BASO % 0.4 % (0.0-2.0); EOS # 0.5 (0.0-0.7); EOS % 10.4 % (0-4.0); GRAN # 3.1 (1.4-6.5); LYMPH # 0.6 (1.2-3.4); LYMPH % 13.4 % (20.0-51.0); MEAN CELL VOLUME 105 fl (80.0-100.0); MEAN CORPUSCULAR HGB CONC 32 g/dl (33.0-37.0); MEAN PLATELET VOLUME 9.5 fl (7.4-10.4); MONO # 0.5 (0.1-0.6); MONO % 10.4 % (1.7-9.3); PLATELET COUNT 241 K/mm3 (130-400); RED BLOOD COUNT 2.99 M/mm3 (4.10-5.30); REDCELL DISTRIBUTION WIDTH-CV 15.9 % (11.5-14.5)
[2019-12-01 06:31] LABS: HEMATOCRIT 31.4 % (37.0-47.0); HEMOGLOBIN 9.9 g/dl (12.5-16.0); MEAN CORPUSCULAR HEMOGLOBIN 33 pg (27.0-31.0)
[2019-12-01 06:35] LABS: ALBUMIN 3.8 gm/dL (3.5-5.0); BILIRUBIN,TOTAL 0.4 mg/dL (0.0-1.0); CALCIUM 9.4 mg/dL (8.4-10.2); CREATININE, serum 4.76 (0.52-1.25); POTASSIUM 4.6 mmol/L (3.4-5.0); TOTAL PROTEIN 7.5 gm/dL (6.4-8.2)
[2019-12-01 07:41] LABS: INR 1.2 (0.8-3.0); PROTHROMBIN TIME 13.8 SECONDS (9.7-12.8)
[2019-12-01 08:16] VITALS: BP 170/83; PULSE 73; TEMP 97.7
--- NOTE | 2019-12-01 08:20 | NUR ---
Patient to room 310 by wheelchair from ED. Nurse oriented patient to room, bed and call light. Assessment charted. Patient A&Ox3. VSS, BP hypertensive. IV CDI. Fistula LF UA CDI, strong pulse. No further needs expressed from patient. Call light within reach
[2019-12-01 09:59] LABS: COLLECTION METHOD CLEAN CATCH
[2019-12-01 10:05] LABS: MUCOUS Present /lpf; PH 5 (5-8); SQUAMOUS EPITHELIAL 0-2 /hpf; URINE APPEARANCE Clear; URINE BACTERIA None Seen /hpf; URINE BILIRUBIN Negative (NEGATIVE); URINE BLOOD Negative (NEGATIVE); URINE COLOR Yellow; URINE GLUCOSE 1+ (NEGATIVE); URINE KETONE Negative (NEGATIVE); URINE LEUKOCYTE ESTERASE Negative (NEGATIVE); URINE NITRATE Negative (NEGATIVE); URINE PROTEIN(semi-quant) 3+ (NEGATIVE); URINE RBC 0-2 /hpf; URINE UROBILINOGEN Negative (NEGATIVE)
[2019-12-01 11:33] VITALS: BP 177/96; PULSE 82
[2019-12-01 18:05] VITALS: BP 167/95; PULSE 81; TEMP 98.5
--- NOTE | 2019-12-01 18:17 | NUR ---
Patient resting in bed. A&Ox3, reporting pain in rt side abdomen. Pain medication given when requested. VSS. BP hypertensive. IV CDI. No further needs expressed from patient. Call light within reach
[2019-12-01 19:43] VITALS: BP 184/90; PULSE 83; TEMP 98.8
--- NOTE | 2019-12-01 20:30 | NUR ---
Initial shift assessment done- was given a [place] not long ago- states abd/flank pain is 4/10 at this time. No requests, night meds given- states shes ready to get some sleep. Up on own-steady on feet
[2019-12-01 23:11] VITALS: BP 163/93; PULSE 74; TEMP 98
[2019-12-02 03:37] VITALS: BP 163/74; PULSE 73; TEMP 97.9
--- NOTE | 2019-12-02 05:46 | NUR ---
Very quiet night- B/P stable at 160/70,, Was given a [place] at 0340 this morning for abd/flank pain-- no other requests.
[2019-12-02 08:30] VITALS: BP 151/93; PULSE 90; TEMP 97.6
--- NOTE | 2019-12-02 08:30 | NUR ---
PATIENT ASSESSMENT COMPLETED. SHE DENIES ANY PAIN OR NAUSEA AT THIS TIME VITALS TAKEN AND BREAKFAST COMPLETE. PATIENT IS TRANSFERED TO DIALYSIS VIA WHEELCHAIR.
[2019-12-02 08:54] LABS: BASO % 0.4 % (0.0-2.0); EOS # 0.6 (0.0-0.7); EOS % 12.3 % (0-4.0); GRAN # 3.1 (1.4-6.5); GRAN % 62.3 % (42.2-75.2); LYMPH # 0.8 (1.2-3.4); LYMPH % 15.3 % (20.0-51.0); MEAN CELL VOLUME 103 fl (80.0-100.0); MEAN CORPUSCULAR HGB CONC 32 g/dl (33.0-37.0); MEAN PLATELET VOLUME 9.3 fl (7.4-10.4); MONO # 0.5 (0.1-0.6); MONO % 9.3 % (1.7-9.3); PLATELET COUNT 231 K/mm3 (130-400); RED BLOOD COUNT 2.93 M/mm3 (4.10-5.30); REDCELL DISTRIBUTION WIDTH-CV 15.8 % (11.5-14.5)
[2019-12-02 08:55] LABS: HEMATOCRIT 30.2 % (37.0-47.0); HEMOGLOBIN 9.7 g/dl (12.5-16.0); MEAN CORPUSCULAR HEMOGLOBIN 33 pg (27.0-31.0)
[2019-12-02 09:05] LABS: CALCIUM 9.4 mg/dL (8.4-10.2); CREATININE, serum 5.6 (0.52-1.25); POTASSIUM 4.5 mmol/L (3.4-5.0)
[2019-12-02] MEDS ORDERED: NORCO 325 MG-51 TAB PO (11:38)
--- NOTE | 2019-12-02 11:57 | NUR ---
PATIENT IS GIVEN 1 TAB [place] FOR COMPLAINTS OF PAIN.
--- NOTE | 2019-12-02 12:45 | NUR ---
PATIENT RETURNS FROM DIALYSIS. I HAD THE DIALYSIS NURSE COME UP TO [facility] DRESSING WITH BRIGHT RED BLOOD NOTED I HAD APPLIED PRESSURE PRIOR TO HER ARRIVAL. SHE CHANGED THE DRESSING IT HAS STOPPED BLEEDING.
--- NOTE | 2019-12-02 13:00 | NUR ---
PATIENT DISCHARGE PAPERWORK REVIEWED WITH PATIENT. I HAVE GIVEN HER THE PRESCRIPTION FOR NOR[place] PER DR. IRBY.
--- NOTE | 2019-12-02 13:13 | NUR ---
Patient lives at home alone in [place], [place] and plans to discharge home upon recovery. Patient's daughter Becky Street is supportive as needed and patient is semi independent with daily living activities and uses a wheelchair for mobility assitance as needed. Patient has chronic pain and her primary care physician is Bandar Tanner and she also receives medical care from Daryl Harding, Gustavo Quiroz and Frank Benton as needed. 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 Patient's pharmacy is [facility] and she does have advance directives for healthcare completed and is a DNR (DPOA is her daughter Becky Street [phone]). information services vice president will follow up as needed.
--- NOTE | 2019-12-02 13:35 | NUR ---
PATIENT DISCHARGED TO HOME WITH BELONGINGS VIA WHEELCHAIR.
== END 2019-12-02 13:35 | disposition home or self-care (01) ==
LOC: COL.ER 05:57 → MEDICAL 07:03
PROVIDERS: Emergency Medicine; ADMIT Internal Medicine Nephrology
DX: Z87.891 Personal history of nicotine dependence (principal); I13.2 Hypertensive heart and chronic kidney disease with heart failure and with stage 5 chronic kidney disease, or end stage renal disease; I50.9 Heart failure, unspecified; N18.6 End stage renal disease; D63.1 Anemia in chronic kidney disease; Z99.2 Dependence on renal dialysis; G47.33 Obstructive sleep apnea (adult) (pediatric); E78.5 Hyperlipidemia, unspecified; Z95.5 Presence of coronary angioplasty implant and graft; I25.10 Atherosclerotic heart disease of native coronary artery without angina pectoris; C90.00 Multiple myeloma not having achieved remission; E85.9 Amyloidosis, unspecified; M35.3 Polymyalgia rheumatica; Z79.899 Other long term (current) drug therapy; Z79.02 Long term (current) use of antithrombotics/antiplatelets; F32.9 Major depressive disorder, single episode, unspecified; F41.9 Anxiety disorder, unspecified
CPT/HCPCS: G0378; J1644; J2270; J7030; Q5105

== ENCOUNTER 2019-12-22 10:55 | Emergency (ER) | payer MEDICARE, BC ==
[2005-12-08 15:01] VITALS: BP 138/79
[~2019-12-22] VITALS: Ht 160 cm; Wt 76.8 kg
[~2019-12-22 10:55] MED LIST changes: +NORCO 325 MG-51 TAB PO
[2019-12-22 11:04] VITALS: TEMP 98.4
[2019-12-22] MEDS ORDERED: NORCO 325 MG-51 TAB PO ×3 (11:26→14:46)
[2019-12-22] MEDS ORDERED: PHENERGAN 25 TA25 MG PO (11:48)
[2019-12-22 14:20] VITALS: BP 182/95; PULSE 79
== END 2019-12-22 14:11 | disposition home or self-care (01) ==
LOC: COL.ER 10:55
DX: M54.5 Low back pain (principal); G89.29 Other chronic pain; N18.6 End stage renal disease; Z99.2 Dependence on renal dialysis; Z87.891 Personal history of nicotine dependence; Z79.02 Long term (current) use of antithrombotics/antiplatelets; Z79.01 Long term (current) use of anticoagulants
CPT/HCPCS: J1170; J2270; J2405

== ENCOUNTER 2020-02-16 11:48 | Emergency (ER) | payer MEDICARE, BC ==
[2005-12-08 15:01] VITALS: BP 138/79
[~2020-02-16] VITALS: Ht 157.5 cm; Wt 76.4 kg
[2020-02-16 11:55] VITALS: TEMP 97.3
[2020-02-16] MEDS ORDERED: ASPIRIN 81M81 MG/TA2 PO (12:06)
[2020-02-16] MEDS ORDERED: DILAUDID 2MG TAB2 MG PO (12:08)
[2020-02-16 12:34] LABS: BASO % 0.5 % (0.0-2.0); EOS # 0.1 (0.0-0.7); EOS % 2.5 % (0-4.0); GRAN # 4.3 (1.4-6.5); GRAN % 74.6 % (42.2-75.2); HEMOGLOBIN 10.5 g/dl (12.5-16.0); LYMPH # 0.8 (1.2-3.4); LYMPH % 13.2 % (20.0-51.0); MEAN CELL VOLUME 101 fl (80.0-100.0); MEAN CORPUSCULAR HEMOGLOBIN 33 pg (27.0-31.0); MEAN CORPUSCULAR HGB CONC 33 g/dl (33.0-37.0); MEAN PLATELET VOLUME 9.8 fl (7.4-10.4); MONO # 0.5 (0.1-0.6); MONO % 8.8 % (1.7-9.3); PLATELET COUNT 181 K/mm3 (130-400); RED BLOOD COUNT 3.17 M/mm3 (4.10-5.30); REDCELL DISTRIBUTION WIDTH-CV 13.1 % (11.5-14.5)
[2020-02-16 12:41] LABS: BILIRUBIN,TOTAL 0.4 mg/dL (0.0-1.0); CALCIUM 9.9 mg/dL (8.4-10.2); CREATININE, serum 2.42 (0.52-1.25); POTASSIUM 4.5 mmol/L (3.4-5.0); TOTAL PROTEIN 7.9 gm/dL (6.4-8.2)
[2020-02-16 12:44] LABS: HEMATOCRIT 32.1 % (37.0-47.0)
[2020-02-16 12:47] LABS: INR 1.2 (0.8-3.0)
[2020-02-16 12:55] VITALS: BP 151/84; PULSE 87
== END 2020-02-16 13:00 | disposition home or self-care (01) ==
LOC: COL.ER 11:48
PROVIDERS: Family Medicine
DX: T82.838A Hemorrhage due to vascular prosthetic devices, implants and grafts, initial encounter (principal); I10 Essential (primary) hypertension; Z79.82 Long term (current) use of aspirin; Z79.02 Long term (current) use of antithrombotics/antiplatelets; Z79.01 Long term (current) use of anticoagulants; Z99.2 Dependence on renal dialysis

== ENCOUNTER 2020-03-17 10:42 | Outpatient (CLI) | payer MEDICARE, BC ==
[2005-12-08 15:01] VITALS: BP 138/79
[~2020-03-17] VITALS: Ht 165.1 cm; Wt 75.3 kg
[~2020-03-17 10:42] MED LIST changes: +ASPIRIN 81M81 MG/TA2 PO; +DILAUDID 2MG TAB2 MG PO
[2020-03-17 13:39] VITALS: BP 163/83; PULSE 56; TEMP 98
[2020-03-17 14:47] VITALS: BP 164/84; PULSE 55
--- NOTE | 2020-03-17 14:51 | NUR ---
SEE KAY FOR ALL MEDICATION ADMINISTRATION AND INTRA AND POST SEDATION ASSESSMENT
[2020-03-17 15:50] VITALS: BP 164/72; PULSE 52
--- NOTE | 2020-03-17 15:50 | NUR ---
Report from Paty CHEEK. Transferred back from [facility] by bed. VSS. Left upper arm fistula emmieg CD&I.
[2020-03-17 16:05] VITALS: BP 160/80; PULSE 72
[2020-03-17 16:20] VITALS: BP 164/72; PULSE 62
[2020-03-17 17:00] VITALS: BP 161/70; PULSE 62; TEMP 98
--- NOTE | 2020-03-17 17:00 | NUR ---
INT to hand and INT placed by laborer tanbark to right AC discontinued intact. Discharge instructions given . Transferred to private car by joyce
== END 2020-03-17 17:00 | disposition home or self-care (01) ==
LOC: COL.CAR 10:42
DX: T82.858A Stenosis of other vascular prosthetic devices, implants and grafts, initial encounter (principal); Z96.653 Presence of artificial knee joint, bilateral; Z88.1 Allergy status to other antibiotic agents; Z79.82 Long term (current) use of aspirin; Z87.891 Personal history of nicotine dependence
CPT/HCPCS: J1644; J2250; J3010; Q9967

== ENCOUNTER → 2020-05-30 | Outpatient (CLI) | payer MEDICARE, BC | LOC: COL.RAD 05-29 09:00 | DX: H53.461 Homonymous bilateral field defects, right side (principal); H53.462 Homonymous bilateral field defects, left side; I67.82 Cerebral ischemia ==

== ENCOUNTER 2020-12-04 11:50 | Outpatient (CLI) | payer MEDICARE, BC ==
[2005-12-08 15:01] VITALS: BP 138/79
[~2020-12-04] VITALS: Ht 165.1 cm; Wt 62.0 kg
[2020-12-04] VITALS (8 sets, daily range): BP systolic 115–149; BP diastolic 72–86; PULSE 57–72; TEMP 98.1
[2020-12-04] MEDS ORDERED: B-12 250 MCG PO (12:55)
--- NOTE | 2020-12-04 13:50 | NUR ---
IV flushed again prior to be leaving for procedure. Site remains patent, flushes easily with no infiltration.
--- NOTE | 2020-12-04 18:00 | NUR ---
Pt care was assumed at 1542 when pt returned to express from laborer wrecking and salvaging. pt is awake, drowsy, aao x 3, resp reg and unlabored, fistula intact with no bleeding, thrill palpated, 2 puncture sites from fistulogram dressed with clean and dry bandaids. call light in reach, lunch ordered. Daughter updated about pt's status and estimated discharge time.
[2021-04-18] MEDS ORDERED: CRESTOR 10MG10 MG PO (09:23)
[2021-04-18] MEDS ORDERED: DEMADEX10 MG PO (09:24)
[2021-04-18] MEDS ORDERED: MSIR30 MG IT (09:30)
[2021-04-18] MEDS ORDERED: RANEXA 500MG T500 MG PO (09:32)
[2021-04-24] MEDS ORDERED: APRESOLINE 25MG25 MG PO (11:04)
[2021-04-24] MEDS ORDERED: DESYREL 100MG100 MG PO ×2 (11:05)
[2021-04-24] MEDS ORDERED: LEXAPRO 10MG10 MG PO (11:05)
[2021-04-24] MEDS ORDERED: SEROQUEL 2525 MG/TAB PO (11:06)
[2021-04-24] MEDS ORDERED: MELATONIN5 M1 PO (11:07)
[2021-04-24] MEDS ORDERED: PEPCID 20MG TAB20 MG PO (11:07)
[2021-04-24] MEDS ORDERED: PHOSLO667 MG PO (11:10)
== END 2020-12-04 18:00 | disposition home or self-care (01) ==
LOC: COL.CAR 11:50
DX: T82.858A Stenosis of other vascular prosthetic devices, implants and grafts, initial encounter (principal); N18.6 End stage renal disease; Z99.2 Dependence on renal dialysis; Z96.653 Presence of artificial knee joint, bilateral; Z88.1 Allergy status to other antibiotic agents; Z88.8 Allergy status to other drugs, medicaments and biological substances; F17.210 Nicotine dependence, cigarettes, uncomplicated
CPT/HCPCS: C1725; C1769; C1894; J1644; J2250; J3010; Q9967

== ENCOUNTER 2020-12-24 12:36 | Emergency (ER) | payer MEDICARE, BC ==
[2005-12-08 15:01] VITALS: BP 138/79
[~2020-12-24] VITALS: Ht 154.9 cm; Wt 71.4 kg
[~2020-12-24 12:36] MED LIST changes: +B-12 250 MCG PO
[2020-12-24 13:10] VITALS: BP 142/82; TEMP 98.2
[2020-12-24 15:24] VITALS: PULSE 57
[2021-04-18] MEDS ORDERED: CRESTOR 10MG10 MG PO (09:23)
[2021-04-18] MEDS ORDERED: DEMADEX10 MG PO (09:24)
[2021-04-18] MEDS ORDERED: MSIR30 MG IT (09:30)
[2021-04-18] MEDS ORDERED: RANEXA 500MG T500 MG PO (09:32)
[2021-04-24] MEDS ORDERED: APRESOLINE 25MG25 MG PO (11:04)
[2021-04-24] MEDS ORDERED: LEXAPRO 10MG10 MG PO (11:05)
[2021-04-24] MEDS ORDERED: DESYREL 100MG100 MG PO ×2 (11:05)
[2021-04-24] MEDS ORDERED: SEROQUEL 2525 MG/TAB PO (11:06)
[2021-04-24] MEDS ORDERED: MELATONIN5 M1 PO (11:07)
[2021-04-24] MEDS ORDERED: PEPCID 20MG TAB20 MG PO (11:07)
[2021-04-24] MEDS ORDERED: PHOSLO667 MG PO (11:10)
== END 2020-12-24 15:29 | disposition home or self-care (01) ==
LOC: COL.ER 12:36
DX: S81.012A Laceration without foreign body, left knee, initial encounter (principal); I50.9 Heart failure, unspecified; I48.91 Unspecified atrial fibrillation; Z79.01 Long term (current) use of anticoagulants; Z88.1 Allergy status to other antibiotic agents; Z87.891 Personal history of nicotine dependence; W01.0XXA Fall on same level from slipping, tripping and stumbling without subsequent striking against object, initial encounter
CPT/HCPCS: L1846

== ENCOUNTER 2020-12-28 10:23 | Emergency (ER) | payer MEDICARE, BC ==
[2005-12-08 15:01] VITALS: BP 138/79
[~2020-12-28] VITALS: Ht 154.9 cm; Wt 71.4 kg
[2020-12-28 10:26] VITALS: TEMP 97.3
[2020-12-28 10:58] LABS: BASO % 0.5 % (0.0-2.0); EOS # 0.2 (0.0-0.7); EOS % 4.6 % (0-4.0); GRAN # 2.6 (1.4-6.5); HEMOGLOBIN 10.9 g/dl (12.5-16.0); LYMPH % 23.4 % (20.0-51.0); MEAN CELL VOLUME 104 fl (80.0-100.0); MEAN CORPUSCULAR HEMOGLOBIN 33 pg (27.0-31.0); MEAN CORPUSCULAR HGB CONC 32 g/dl (33.0-37.0); MEAN PLATELET VOLUME 9.9 fl (7.4-10.4); MONO # 0.3 (0.1-0.6); PLATELET COUNT 163 K/mm3 (130-400); REDCELL DISTRIBUTION WIDTH-CV 13.1 % (11.5-14.5)
[2020-12-28 10:59] LABS: HEMATOCRIT 34.2 % (37.0-47.0)
[2020-12-28 11:07] LABS: ALBUMIN 4.1 gm/dL (3.5-5.0); BILIRUBIN,TOTAL 0.3 mg/dL (0.0-1.0); CALCIUM 9.3 mg/dL (8.4-10.2); CREATININE, serum 4.17 (0.52-1.25); POTASSIUM 5.1 mmol/L (3.4-5.0); TOTAL PROTEIN 8.8 gm/dL (6.4-8.2)
[2020-12-28] MEDS ORDERED: IMDUR 30MG30 MG/TAB PO (11:52)
[2020-12-28] MEDS ORDERED: PLAVIX 75MG TAB75 MG PO (12:32)
[2020-12-28] MEDS ORDERED: PERCOCET 325 MG1 TA2 PO (15:18)
[2020-12-28 15:31] VITALS: BP 145/81; PULSE 71
[2021-04-18] MEDS ORDERED: CRESTOR 10MG10 MG PO (09:23)
[2021-04-18] MEDS ORDERED: DEMADEX10 MG PO (09:24)
[2021-04-18] MEDS ORDERED: MSIR30 MG IT (09:30)
[2021-04-18] MEDS ORDERED: RANEXA 500MG T500 MG PO (09:32)
[2021-04-24] MEDS ORDERED: APRESOLINE 25MG25 MG PO (11:04)
[2021-04-24] MEDS ORDERED: LEXAPRO 10MG10 MG PO (11:05)
[2021-04-24] MEDS ORDERED: DESYREL 100MG100 MG PO ×2 (11:05)
[2021-04-24] MEDS ORDERED: SEROQUEL 2525 MG/TAB PO (11:06)
[2021-04-24] MEDS ORDERED: PEPCID 20MG TAB20 MG PO (11:07)
[2021-04-24] MEDS ORDERED: MELATONIN5 M1 PO (11:07)
[2021-04-24] MEDS ORDERED: PHOSLO667 MG PO (11:10)
== END 2020-12-28 15:31 | disposition home or self-care (01) ==
LOC: COL.ER 10:23
PROVIDERS: Nurse Practitioner Family
DX: S42.402A Unspecified fracture of lower end of left humerus, initial encounter for closed fracture (principal); M54.9 Dorsalgia, unspecified; N18.6 End stage renal disease; I50.9 Heart failure, unspecified; I48.91 Unspecified atrial fibrillation; E03.9 Hypothyroidism, unspecified; I25.2 Old myocardial infarction; Z99.2 Dependence on renal dialysis; Z85.79 Personal history of other malignant neoplasms of lymphoid, hematopoietic and related tissues; Z87.891 Personal history of nicotine dependence; Z96.653 Presence of artificial knee joint, bilateral; Z88.1 Allergy status to other antibiotic agents; Z79.890 Hormone replacement therapy; Z79.02 Long term (current) use of antithrombotics/antiplatelets; W01.0XXA Fall on same level from slipping, tripping and stumbling without subsequent striking against object, initial encounter; Y92.009 Unspecified place in unspecified non-institutional (private) residence as the place of occurrence of the external cause
CPT/HCPCS: J1170; J2270; J3010

== ENCOUNTER → 2021-01-07 | Outpatient (CLI) | payer MEDICARE, BC ==
[~2021-01-07] MED LIST changes: +APRESOLINE 25MG25 MG PO; +COLACE 100100 MG/CAP PO; +CRESTOR 10MG10 MG PO; +DEMADEX10 MG PO; +DESYREL 100MG100 MG PO; +DULCOLAX TAB5 MG PO; +IMDUR 30MG30 MG/TAB PO; +MELATONIN5 M1 PO; +MSIR30 MG IT; +PEPCID 20MG TAB20 MG PO; +PERCOCET 325 MG1 TA2 PO; +PHOSLO667 MG PO; +RANEXA 500MG T500 MG PO; +RANEXA1000 MG PO; +SEROQUEL 2525 MG/TAB PO
[2021-01-07 11:09] VITALS: BP 139/80; PULSE 67; TEMP 97.8
== END ==
LOC: COL.ER 10:57
DX: Z48.02 Encounter for removal of sutures (principal)

== ENCOUNTER → 2021-03-31 | Outpatient (CLI) | payer MEDICARE, BC | LOC: COL.LAB 12:03 → COL.RAD 12:12 | DX: Z11.1 Encounter for screening for respiratory tuberculosis (principal) ==

== ENCOUNTER 2021-04-16 09:32 | Emergency (ER) | payer MEDICARE, BC ==
[~2021-04-16] VITALS: Ht 154.9 cm; Wt 67.3 kg
[~2021-04-16 09:32] MED LIST changes: -APRESOLINE 25MG25 MG PO; -COLACE 100100 MG/CAP PO; -CRESTOR 10MG10 MG PO; -DEMADEX10 MG PO; -DESYREL 100MG100 MG PO; -DULCOLAX TAB5 MG PO; -MELATONIN5 M1 PO; -MSIR30 MG IT; -PEPCID 20MG TAB20 MG PO; -PHOSLO667 MG PO; -RANEXA 500MG T500 MG PO; -RANEXA1000 MG PO; -SEROQUEL 2525 MG/TAB PO
[2021-04-16 09:36] VITALS: TEMP 97.6
[2021-04-16 10:09] LABS: BASO % 0.5 % (0.0-2.0); EOS # 0.5 (0.0-0.7); EOS % 10.7 % (0-4.0); GRAN # 2.6 (1.4-6.5); GRAN % 59.7 % (42.2-75.2); HEMOGLOBIN 10.4 g/dl (12.5-16.0); LYMPH # 0.8 (1.2-3.4); LYMPH % 17.3 % (20.0-51.0); MEAN CELL VOLUME 100 fl (80.0-100.0); MEAN CORPUSCULAR HEMOGLOBIN 32 pg (27.0-31.0); MEAN CORPUSCULAR HGB CONC 32 g/dl (33.0-37.0); MEAN PLATELET VOLUME 9.2 fl (7.4-10.4); MONO # 0.5 (0.1-0.6); MONO % 11.6 % (1.7-9.3); PLATELET COUNT 118 K/mm3 (130-400); RED BLOOD COUNT 3.23 M/mm3 (4.10-5.30); REDCELL DISTRIBUTION WIDTH-CV 14.6 % (11.5-14.5)
[2021-04-16 10:10] LABS: HEMATOCRIT 32.4 % (37.0-47.0)
[2021-04-16 10:37] LABS: TROPONIN-I 0.059 ng/mL (0.000-0.035)
[2021-04-16 10:44] LABS: ALBUMIN 3.9 gm/dL (3.5-5.0); BILIRUBIN,TOTAL 0.6 mg/dL (0.0-1.0); CALCIUM 9.5 mg/dL (8.4-10.2); CREATININE, serum 2.5 (0.52-1.25); POTASSIUM 3.8 mmol/L (3.4-5.0); TOTAL PROTEIN 8.6 gm/dL (6.4-8.2)
[2021-04-16 14:15] VITALS: BP 176/96; PULSE 84
[2021-04-18] MEDS ORDERED: CRESTOR 10MG10 MG PO (09:23)
[2021-04-18] MEDS ORDERED: DEMADEX10 MG PO (09:24)
[2021-04-18] MEDS ORDERED: MSIR30 MG IT (09:30)
[2021-04-18] MEDS ORDERED: RANEXA 500MG T500 MG PO (09:32)
[2021-04-24] MEDS ORDERED: APRESOLINE 25MG25 MG PO (11:04)
[2021-04-24] MEDS ORDERED: DESYREL 100MG100 MG PO ×2 (11:05)
[2021-04-24] MEDS ORDERED: LEXAPRO 10MG10 MG PO (11:05)
[2021-04-24] MEDS ORDERED: SEROQUEL 2525 MG/TAB PO (11:06)
[2021-04-24] MEDS ORDERED: PEPCID 20MG TAB20 MG PO (11:07)
[2021-04-24] MEDS ORDERED: MELATONIN5 M1 PO (11:07)
[2021-04-24] MEDS ORDERED: PHOSLO667 MG PO (11:10)
== END 2021-04-16 14:15 | disposition home or self-care (01) ==
LOC: COL.ER 09:32
PROVIDERS: Family Medicine
DX: N18.5 Chronic kidney disease, stage 5 (principal); R00.2 Palpitations; I25.10 Atherosclerotic heart disease of native coronary artery without angina pectoris; I25.2 Old myocardial infarction; I48.91 Unspecified atrial fibrillation; Z99.2 Dependence on renal dialysis; Z79.02 Long term (current) use of antithrombotics/antiplatelets

== ENCOUNTER 2021-05-05 06:17 | Observation (INO) | payer MEDICARE, BC ==
[~2021-05-05] VITALS: Ht 154.9 cm; Wt 72.6 kg
[~2021-05-05 06:17] MED LIST changes: +APRESOLINE 25MG25 MG PO; +CRESTOR 10MG10 MG PO; +DEMADEX10 MG PO; +DESYREL 100MG100 MG PO; +MELATONIN5 M1 PO; +MSIR30 MG IT; +PEPCID 20MG TAB20 MG PO; +PHOSLO667 MG PO; +RANEXA 500MG T500 MG PO; +SEROQUEL 2525 MG/TAB PO
[2021-05-05 06:48] LABS: BASO % 0.4 % (0.0-2.0); EOS # 0.2 (0.0-0.7); GRAN # 5.7 (1.4-6.5); GRAN % 72.3 % (42.2-75.2); HEMOGLOBIN 10.2 g/dl (12.5-16.0); LYMPH # 1.2 (1.2-3.4); LYMPH % 14.8 % (20.0-51.0); MEAN CELL VOLUME 104 fl (80.0-100.0); MEAN CORPUSCULAR HEMOGLOBIN 33 pg (27.0-31.0); MEAN CORPUSCULAR HGB CONC 32 g/dl (33.0-37.0); MONO # 0.8 (0.1-0.6); MONO % 10.2 % (1.7-9.3); PLATELET COUNT 204 K/mm3 (130-400); RED BLOOD COUNT 3.12 M/mm3 (4.10-5.30)
[2021-05-05 06:50] LABS: HEMATOCRIT 32.4 % (37.0-47.0)
[2021-05-05 06:52] LABS: ALBUMIN 3.8 gm/dL (3.5-5.0); BILIRUBIN,TOTAL 0.2 mg/dL (0.0-1.0); CALCIUM 10.4 mg/dL (8.4-10.2); POTASSIUM 5.5 mmol/L (3.4-5.0); TOTAL PROTEIN 8.1 gm/dL (6.4-8.2)
[2021-05-05 07:01] LABS: INR 1.2 (0.8-3.0); PROTHROMBIN TIME 12.8 SECONDS (9.7-12.8)
[2021-05-05 07:03] LABS: CREATININE, serum 8.4 (0.52-1.25)
[2021-05-05 07:04] LABS: PARTIAL THROMBOPLASTIN TIME 33.2 SECONDS (26.0-37.0); TROPONIN-I 0.031 ng/mL (0.000-0.035)
[2021-05-05 12:00] VITALS: BP 154/69; PULSE 66; TEMP 98
--- NOTE | 2021-05-05 12:00 | NUR ---
Patient tolerated HD tx with 1.6 L of fluid removal, bradycardia resolved by end of tx with HR maintaing @ 65. Dc'd tx 43 mins early due golfball size hematoma @ venous site after patient raised & bent her arm with needlesticks, unable to troubleshoot needlestick & Dr. Harding ok to dc start today & return for next planned HD tx tomorrow, Tuesday05/06/21 @ 0800. Nurse Dillon applied ice pack to LUE arm for 15 mins.
--- NOTE | 2021-05-05 13:06 | NUR ---
The patient recently discharged from the hospital on 04/27 and went to [facility] for a skilled stay. CLAIR confirmed with Radha at [facility] that the patient is still at their facility for SNF. The patient was transferred to the hospital this morning, from dialysis, due to her heart rate being in the 30s. CLAIR contacted the patient's daughter, Becky (ph#[phone]), to discuss discharge plan. The patient was living at home with Becky in [place], prior to [facility]. Becky reports that the plan is for the patient to return back to [facility] upon discharge to resume her SNF stay. Her PCP is Dr. Bandar Tanner and her DPOA-HC is in EMR. It designates Becky. CLAIR contacted and faxed updates to Radha at [facility]. SW to continue to follow. *Discharge plan: [facility] SNF*
[2021-05-05 16:00] VITALS: BP 143/67; PULSE 68; TEMP 97.5
--- NOTE | 2021-05-05 16:15 | NUR ---
0830 REPORT RECEIVED FROM E.R. NURSE. INFORMED THAT PT WILL BE GOING STRAIGHT TO DIALYSIS BEFORE COMING TO THE FLOOR. 0900 WENT TO DIALYSIS AND PT IS NOTICED BEING DIALIZED. NO S/S OF DISTRESS NOTICED. 0920 PT DAUGHTER CAME TO VISIT PT AND WAS INFORMED THAT SHE WAS STILL IN DIALYSIS. DAUGHTER ASKED US TO INFORM HER WHEN THE PT RETURNS FROM DIALYSIS. 1210 PT RECEIVED FROM DIALYSIS. NO S/S OF DISTRESS NOTICED. TELE MONITOR ON, PT RECIEVED IN NSR. PT ORIENTED TO ROOM. CALL-LIGHT IN REACH. BED IN LOW POSITION. COMFORT MEASURES IN PLACE. DAUGHTER MADE AWARE THAT PT HAS COMPLETED HER DIALYSIS. PER DIALYSIS NURSE, PT FISTULA SITE IS A LITTLE SWOLLEN AND ICE APPLIED TO DECREASE THE SWELLING. 1230 PT IS EATING HER LUNCH. DAUGHTER AT THE BEDSIDE. ALL QUESTIONS ANSWERED
[2021-05-05 20:36] VITALS: BP 138/66; PULSE 79; TEMP 98.4
[2021-05-06 00:32] VITALS: BP 119/70; PULSE 79; TEMP 98.5
[2021-05-06 04:30] VITALS: BP 153/71; PULSE 73; TEMP 98.4
--- NOTE | 2021-05-06 05:23 | NUR ---
PT HAD UNEVENTFUL NIGHT, HEART RATE REMAINED WNL. PT DENIES PAIN,N,V,D. PT REPORTS CONSTIPATION, MEDICATION ADMINISTERED ORDERED. PT EXPRESSES NO ADDITIONAL NEEDS AT THIS TIME. CALL LIGHT WITHIN REACH.
[2021-05-06 07:03] LABS: BASO % 0.4 % (0.0-2.0); EOS # 0.4 (0.0-0.7); EOS % 5.1 % (0-4.0); GRAN # 4.7 (1.4-6.5); GRAN % 67.5 % (42.2-75.2); LYMPH # 1.2 (1.2-3.4); LYMPH % 17.1 % (20.0-51.0); MEAN CELL VOLUME 104 fl (80.0-100.0); MEAN CORPUSCULAR HGB CONC 31 g/dl (33.0-37.0); MEAN PLATELET VOLUME 10.4 fl (7.4-10.4); MONO # 0.7 (0.1-0.6); MONO % 9.6 % (1.7-9.3); PLATELET COUNT 182 K/mm3 (130-400); RED BLOOD COUNT 3.04 M/mm3 (4.10-5.30); REDCELL DISTRIBUTION WIDTH-CV 14.8 % (11.5-14.5)
--- NOTE | 2021-05-06 07:04 | NUR ---
Bedside shift report complete. Pt. alert and requesting to go to the bathroom. Pt OOB to bathroom using walker and staff as a standby assist. Pt. tolerated ambulation well and was able to void. Pt. back to bed to rest at this time. Needs addressed, bed alarm on, call light in reach.
[2021-05-06 07:15] LABS: ALBUMIN 3.7 gm/dL (3.5-5.0); CALCIUM 9.5 mg/dL (8.4-10.2); CREATININE, serum 6.7 (0.52-1.25); PHOSPHOROUS 4.7 mg/dL (2.5-4.5); POTASSIUM 4.7 mmol/L (3.4-5.0)
[2021-05-06 07:22] LABS: HEMATOCRIT 31.6 % (37.0-47.0); HEMOGLOBIN 9.9 g/dl (12.5-16.0); MEAN CORPUSCULAR HEMOGLOBIN 33 pg (27.0-31.0)
[2021-05-06 07:42] VITALS: BP 139/65; PULSE 80; TEMP 98
[2021-05-06] MEDS ORDERED: DULCOLAX TAB5 MG PO (10:49)
[2021-05-06] MEDS ORDERED: COLACE 100100 MG/CAP PO (10:49)
--- NOTE | 2021-05-06 11:30 | NUR ---
PATIENT TOLERATED HD TX WITH 2.4L FLUID REMOVAL TODAY. NEXT PLANNED HD TX @ [facility] ON Tuesday05/09/21.
[2021-05-06 11:45] VITALS: BP 168/81; PULSE 83; TEMP 97.9
--- NOTE | 2021-05-06 11:56 | NUR ---
The patient is to discharge today, 05/06, back to [facility] for a skilled stay. Transportation was scheduled at 1430, via [facility]. CLAIR informed the patient, her RN, and the patient's daughter (Becky) of the time over the phone. They were all agreeable to the time. No additional needs at this time.
--- NOTE | 2021-05-06 12:44 | NUR ---
Pt. progressing w/ plan of care. Plan for patient to be discharged back to Rehab facility today. COVID swab completed per protocol. Awaiting results.
--- NOTE | 2021-05-06 15:00 | NUR ---
Pt. discharged back to rehab facility. IV removed. All questions answered. Pt. left unit with LEXUS Myles.
== END 2021-05-06 17:14 ==
LOC: COL.ER 06:17 → MEDICAL 07:43
PROVIDERS: Emergency Medicine; ADMIT Internal Medicine Nephrology
DX: R00.1 Bradycardia, unspecified (principal); E87.5 Hyperkalemia; E78.5 Hyperlipidemia, unspecified; E03.9 Hypothyroidism, unspecified; C90.00 Multiple myeloma not having achieved remission; I13.2 Hypertensive heart and chronic kidney disease with heart failure and with stage 5 chronic kidney disease, or end stage renal disease; I50.30 Unspecified diastolic (congestive) heart failure; N18.6 End stage renal disease; Z20.822 Contact with and (suspected) exposure to COVID-19; M35.3 Polymyalgia rheumatica; F41.9 Anxiety disorder, unspecified; I25.10 Atherosclerotic heart disease of native coronary artery without angina pectoris; I25.2 Old myocardial infarction; I48.91 Unspecified atrial fibrillation; G47.33 Obstructive sleep apnea (adult) (pediatric); I27.20 Pulmonary hypertension, unspecified; B00.1 Herpesviral vesicular dermatitis; M40.209 Unspecified kyphosis, site unspecified; Z99.2 Dependence on renal dialysis; Z79.02 Long term (current) use of antithrombotics/antiplatelets; Z79.890 Hormone replacement therapy; Z79.899 Other long term (current) drug therapy; Z87.891 Personal history of nicotine dependence; Z97.8 Presence of other specified devices; Z95.818 Presence of other cardiac implants and grafts; F32.9 Major depressive disorder, single episode, unspecified
CPT/HCPCS: G0378; J0610; J1756; J7030; Q5105

== ENCOUNTER → 2021-05-08 | Outpatient (REF) ==
[~2021-05-08] MED LIST changes: +COLACE 100100 MG/CAP PO; +DULCOLAX TAB5 MG PO; +RANEXA1000 MG PO
[2021-05-08 21:13] LABS: CALCIUM 11.2 mg/dL (8.4-10.2); CREATININE, serum 8.31 (0.52-1.25); MAGNESIUM 4.1 mg/dL (1.6-2.3)
[2021-05-08 21:31] LABS: TROPONIN-I 0.018 ng/mL (0.000-0.035)
== END ==
LOC: ZCOL.LAB 20:48
PROVIDERS: Internal Medicine
DX: Z01.89 Encounter for other specified special examinations (principal)

== ENCOUNTER → 2021-05-11 | Outpatient (REF) ==
[2021-05-11 13:27] LABS: CALCIUM 10.2 mg/dL (8.4-10.2); CREATININE, serum 7.44 (0.52-1.25); MAGNESIUM 3.1 mg/dL (1.6-2.3); POTASSIUM 4.9 mmol/L (3.4-5.0)
== END ==
LOC: ZCOL.LAB 10:31
PROVIDERS: Nurse Practitioner Family
DX: E87.5 Hyperkalemia (principal); N18.6 End stage renal disease

== ENCOUNTER 2021-06-24 00:58 | Inpatient (IN) | payer MEDICARE, BC ==
[2021-06-24] VITALS (19 sets, daily range): BP systolic 122–172; BP diastolic 56–92; PULSE 49–79; TEMP 97.8–98.5
[~2021-06-24] VITALS: Ht 154.9 cm; Wt 66.0 kg
[~2021-06-24 00:58] MED LIST changes: -RANEXA1000 MG PO
[2021-06-24 01:32] LABS: BASO % 0.2 % (0.0-2.0); EOS # 0.2 (0.0-0.7); EOS % 2.4 % (0-4.0); GRAN # 5.9 (1.4-6.5); GRAN % 71.6 % (42.2-75.2); HEMATOCRIT 28.7 % (37.0-47.0); HEMOGLOBIN 9.1 g/dl (12.5-16.0); LYMPH % 12.4 % (20.0-51.0); MEAN CELL VOLUME 104 fl (80.0-100.0); MEAN CORPUSCULAR HEMOGLOBIN 33 pg (27.0-31.0); MEAN CORPUSCULAR HGB CONC 32 g/dl (33.0-37.0); MEAN PLATELET VOLUME 10.1 fl (7.4-10.4); MONO # 1.1 (0.1-0.6); MONO % 13.2 % (1.7-9.3); PLATELET COUNT 141 K/mm3 (130-400); RED BLOOD COUNT 2.77 M/mm3 (4.10-5.30); REDCELL DISTRIBUTION WIDTH-CV 14.2 % (11.5-14.5)
[2021-06-24 01:42] LABS: BILIRUBIN,TOTAL 0.9 mg/dL (0.0-1.0); CALCIUM 8.6 mg/dL (8.4-10.2); CREATININE, serum 4.22 (0.52-1.25)
[2021-06-24 02:00] LABS: ALBUMIN 3.7 gm/dL (3.5-5.0); POTASSIUM 4.9 mmol/L (3.4-5.0)
[2021-06-24 02:16] LABS: TROPONIN-I 0.056 ng/mL (0.000-0.035)
[2021-06-24 05:37] LABS: CHOLESTEROL RISK RATIO 1.9
--- NOTE | 2021-06-24 06:01 | NUR ---
PT RECEIVED ON FLOOR, ADMISSION ASSESSMENTS PERFORMED. PT ORIENTED TO ROOM, CALL LIGHT, BATHROOM, AND TELEPHONE. PT BLOOD PRESSURE ELEVATED. NOTIFIED MARILUZ TYSON OF INCREASING TROPONIN AND HEART MURMUR. PT PLACED ON NPO STATUS PER ORDERS.
--- NOTE | 2021-06-24 07:45 | NUR ---
PT RECEIVED MEDICATIONS PER ORDERS, WAS ORIENTED TO ROOM AND HELPED ADJUST IN BED. PT BLOOD PRESSURE ELEVATED. NEW MURMUR NOTED IN PATIENT, NOTIFIED MARILUZ TYSON. CONSULTS NOTIFIED CARDIOLOGY AND NEPHROLOGY. NPO STATUS MAINTAINED PER CARDIOLOGY.
--- NOTE | 2021-06-24 07:55 | NUR ---
CRITICAL TROPONIN REPORTED TO DONTAE MCGRAW.
--- NOTE | 2021-06-24 10:32 | NUR ---
PT PLEASANT, AOX4, DENIES CHEST PAIN, HEPARIN INFUSING PER PROTOCOL, PT C/O POOR SLEEP DUE TO IV PUMP BEEPING DURING THE NIGHT, ASSESSMENT PERFORMED, MEDICATIONS GIVEN, NPO STATUS MAINTAINED PER ORDER, HOLGER MCGRAW CALLED TO DETERMINE POC, NO OTHER NEEDS.
--- NOTE | 2021-06-24 10:51 | NUR ---
CRITICAL TROPONIN REPORTED TO DONTAE MCGRAW.
--- NOTE | 2021-06-24 12:09 | NUR ---
PT REPORTING CHEST PAIN /10 IN CENTER OF CHEST RADIATING TO BACK, DESCRIBED A PRESSURE. MORPHINE GIVEN, CARDIOLOGY AND DONTAE MCGRAW NOTIFIED. AFTER REASSESSING PAIN PT REPORTED INC PAIN AT 8. NITRO X1 GIVEN, BP INCREASING WITH PAIN. WILL REASSESS BP BEFORE NEXT DOSE
--- NOTE | 2021-06-24 12:27 | NUR ---
AFTER THIRD DOSE OF NITRO PT RATING PAIN 2/10.
--- NOTE | 2021-06-24 13:49 | NUR ---
SEE MERGE DOCUMENTATION FOR MEDICATION ADMINISTRATION TIMES AND INTRA/POST PROCEDURE SEDATION ASSESSMENTS.
--- NOTE | 2021-06-24 14:35 | NUR ---
PT RETURNED TO FLOOR, R FEMORAL SITE ASSESSED WITH HAM ARTEAGA. PT PLEASANT, DROWSY, ON 2L O2, VITALS STABLE AT THIS TIME
--- NOTE | 2021-06-24 15:27 | NUR ---
SW met with the patient to discuss discharge plan. The patient lives in [place] with her daughter, Becky ([phone]). She reports needing occasional assistance with bathing and has a cane, walker, and home oxygen that she occasionally uses. She states that Becky helps her with bathing, when needed. She is not receiving any home health services. The patient's PCP is Dr. Bandar Tanner and she receives her medications from [facility], [place]. She reports no difficulties obtaining her meds. The patient's DPOA-HC is in EMR and it designates Becky. The patient plans to return home with her daughter upon discharge. SW attempted to contact and review d/c plan with the patient's daughter, Becky. SW left her a voicemail. SW to ask for PT/OT to be ordered. *Discharge plan: home with daughter*
--- NOTE | 2021-06-24 15:41 | NUR ---
PT FEM SITE REASSESSED MULTIPLE TIMES, STILL SOFT TO PALPATION AND DRESSING CDI. POST OP VITALS STABLE AND PT SLEEPING COMFORTABLY
--- NOTE | 2021-06-24 15:59 | NUR ---
DAUGHTER UPDATED X3
--- NOTE | 2021-06-24 16:40 | NUR ---
RECIEVED CALL FROM TELE REPORTING A PAUSE IN TELEMETRY. DONTAE NOTIFIED AND BROUGHT COPY OF EKG TO PA. ALSO NOTIFIED DONTAE OF ELEVATED DDIMER
--- NOTE | 2021-06-24 17:36 | NUR ---
PT HAS BEEN SLEEPING SINCE HER HEART CATH. DA NOTIFIED OF NEGATIVE RESULTS, PT STILL FLAT, WILL END FLAT TIME AT 1830. PT VITALS STABLE, HR DENISE NS. R FEM SITE CDI W/O ERYTHEMA, SITE SOFT TO PALPATION W/O TENDERNESS OR BRUISING.
--- NOTE | 2021-06-24 18:04 | NUR ---
FLAT TIME FINISHED, PT PLACED ON BEDPAN, INCONTINENT IN BRIEF. PHOSLO GIVEN WITH DINNER AND PT REPOSITIONED IN BED
[2021-06-25] VITALS (7 sets, daily range): BP systolic 124–169; BP diastolic 53–84; PULSE 44–101; TEMP 97.4–98.7
--- NOTE | 2021-06-25 07:27 | NUR ---
pt taken down for VQ scan at approx. 0700
[2021-06-25 08:37] LABS: MEAN CELL VOLUME 105 fl (80.0-100.0); MEAN CORPUSCULAR HGB CONC 31 g/dl (33.0-37.0); MEAN PLATELET VOLUME 10.2 fl (7.4-10.4); PLATELET COUNT 149 K/mm3 (130-400); RED BLOOD COUNT 2.83 M/mm3 (4.10-5.30)
[2021-06-25 08:40] LABS: HEMATOCRIT 29.6 % (37.0-47.0); HEMOGLOBIN 9.3 g/dl (12.5-16.0); MEAN CORPUSCULAR HEMOGLOBIN 33 pg (27.0-31.0)
--- NOTE | 2021-06-25 08:49 | NUR ---
PT PLEASANT, AOX4, REPORTS ABD PAIN 5/10, DENIES CHEST PAIN, BRUISE NOTED TO R SIDE OF BACK, PT ASSESSMENT PERFORMED, R FEMORAL SITE CDI AND SOFT TO PALPATION, PT ON 2L NC SATTING 90%. MEDICATIONS GIVEN, PT TAKEN TO DIALYSIS VIA WHEELCHAIR WITH OXYGEN TANK. PT C/O CONSTIPATION, BOWEL SOUNDS ACTIVE AND ABD SOFT TO PALPATION.
[2021-06-25 08:54] LABS: CALCIUM 8.9 mg/dL (8.4-10.2); CREATININE, serum 6.84 (0.52-1.25)
--- NOTE | 2021-06-25 09:25 | NUR ---
critical potassium reported to LACI Elena
--- NOTE | 2021-06-25 10:52 | NUR ---
pt DA updated
--- NOTE | 2021-06-25 12:56 | NUR ---
Patient tolerated HD tx with 2.3L fluid removal today. Next planned HD tx on Tuesday06/27/21 @ 0800.
--- NOTE | 2021-06-25 13:18 | NUR ---
RECIEVED CALL FROM TELEMETRY THAT PT HR FLUCTUATING IN 130'S. EKG ORDERED, VITALS OBTAINED, PT REPORTS DIZZINESS STARTING EARLIER TODAY IN THE AM. PT REPORTS 2/10 CHEST PAIN. DONTAE MCGRAW NOTIFIED OF EKG RESULTS OF AFIB RVR, EKTA AGUERO NOTIFIED AND CARDIOLOGY NOTIFIED. NO NEW ORDERS AT THIS TIME.
--- NOTE | 2021-06-25 16:53 | NUR ---
TELEMETRY CALLED NOTIFYING PT CONVERTED TO NS. PT REPORTING 8/10 CHEST PAIN, VITALS OBTAINED, MORPHINE GIVEN.
--- NOTE | 2021-06-25 17:45 | NUR ---
PT NOW DENIES ICE CREAM AFTER TYLENOL ADMINISTRATION
--- NOTE | 2021-06-26 01:06 | NUR ---
PT ALERT AND ORIENTED. PT LUNGS CLEAR, DENIES CHEST PAIN AT THIS TIME. PT HAS NON-PITTING EDEMA NOTED IN BILATERAL LOWER EXTREMETIES. PT ABLE TO SIT UP ON OWN AND READJUST SELF. PT MEDICATIONS FLAGGED FOR REACTION, ALERTED CINDI AGUILERA OF QTC AND INSTRUCTED TO HOLD TRAZADONE. PT CALL LIGHT WITHIN REACH, NO OTHER NEEDS AT THIS TIME.
[2021-06-26 04:01] VITALS: BP 150/71; PULSE 72; TEMP 97.4
--- NOTE | 2021-06-26 04:43 | NUR ---
PT CONTINUING ON PLAN OF CARE. PT DENIED PAIN THIS SHIFT. PT VITAL SIGNS REMAINED STABLE THIS SHIFT. PT TELEMETRY MAINTAINED NORMAL SINUS RHYTHM. PT FREE FROM INJURY THIS SHIFT.
[2021-06-26 06:43] VITALS: BP 152/80; PULSE 73
--- NOTE | 2021-06-26 06:45 | NUR ---
PT OXYGEN FOUND TO BE AT 80%, O2 INCREASED TO 1L, SPO2 INCREASED TO 95%.
--- NOTE | 2021-06-26 10:40 | NUR ---
Several visit attempts; Priming Mixture Carrier left card letting patient know of the availability of spiritual care at our hospital and wishing her God's blessings.
--- NOTE | 2021-06-26 10:43 | NUR ---
PT RESTING AT BEDSIDE AFTER SHOWERING ON ROOM AIR. SPO2 87% O2 BACK ON AT 2 LPM SPO2 96%
[2021-06-26] MEDS ORDERED: RANEXA1000 MG PO (11:14)
[2021-06-26] MEDS ORDERED: TYLENOL 500MG500 MG PO ×3 (11:19→11:27)
--- NOTE | 2021-06-26 11:22 | NUR ---
The hospitalist notified CLAIR that they will be ready to d/c the patient today and would recommend home health. An exercise oximetry was ordered and the patient qualified for 2 liters of oxygen. CLAIR contacted the patient's daughter, Becky, to review d/c plan. Becky reports that they would be interested in home health and chose [facility]. She reports that they had services from [facility] in the past. Becky reports that the patient has oxygen at home, but that it is from [facility] and that they are discontinuing supplying oxgen. She reports that they received a letter from [facility] stating that they need to return their equipment. CLAIR informed Becky of the other DME companies. Bekcy was interested in getting the oxygen from [facility] and having it delivered to the hospital. She reports that she will citrus picker the patient after she gets off work at 1800 today. CLAIR contacted and faxed a referral to Camilla at [facility]. Camilla reports that they are able to accept the patient for services. CLAIR contacted and faxed the patient's oxygen order to Adelina at [facility]. Awaiting delivery of oxygen. CLAIR updated the patient's RN. The patient is to discharge back home with her daughter today, 06/26, with home health services for long-term/PT/OT from [facility]. CLAIR notified and faxed d/c orders to Camilla at [facility]. No additional needs at this time.
[2021-06-26 11:49] LABS: ALBUMIN 3.9 gm/dL (3.5-5.0); CALCIUM 8.5 mg/dL (8.4-10.2); CREATININE, serum 5.47 (0.52-1.25); PHOSPHOROUS 4.1 mg/dL (2.5-4.5); POTASSIUM 4.4 mmol/L (3.4-5.0)
--- NOTE | 2021-06-26 12:04 | NUR ---
Adelina, at [facility], contacted this SW and reports that they are low on concentrators and will not be able to fill this order. CLAIR contacted and faxed and emailed the order to Irlanda and Ananth at [facility]. Ananth reports that they can deliver a traveler concentrator to the patient's room today and then deliver the concetrator to the patient's home on Tuesday or Tuesday. CLAIR contacted and updated the patient's daughter, Becky. She was agreeable to the plan.
[2021-06-26 12:14] VITALS: BP 146/98; PULSE 72; TEMP 98.1
--- NOTE | 2021-06-26 14:50 | NUR ---
DISCHARGE EDUCATION PROVIDED
[2021-06-26 16:00] VITALS: BP 153/70; PULSE 77; TEMP 98.2
--- NOTE | 2021-06-26 16:10 | NUR ---
[facility] delivered the travel concentrator to the patient's room. No additional needs at this time.
--- NOTE | 2021-06-26 18:11 | NUR ---
PT HAD UNEVENTFUL DAY. WILL BE LEAVING TONIGHT WITH DAUGHTER. NO NEEDS AT THIS TIME. PT DENIES PAIN. CALL RAPHAEL IN REACH.
--- NOTE | 2021-06-26 18:32 | NUR ---
IV REMOVED, TELE REMOVED, PT HELPED GET DRESSED AND ESCORTED OUT VIA WHEELCHAIR, PT STARTED HER OWN OXYGEN MACHINE
== END 2021-06-26 18:45 | disposition home health service (06) | DRG 280 ==
LOC: COL.ER 00:58 → MEDICAL 02:33
PROVIDERS: Personal Emergency Response Attendant; Physician Assistant; Student in an Organized Health Care Education/Training Program; ADMIT Internal Medicine Cardiovascular Disease
PROC: 4A023N7 Measurement of Cardiac Sampling and Pressure, Left Heart, Percutaneous Approach (ICD-10-PCS; principal; 2021-06-24)
PROC: B2111ZZ Fluoroscopy of Multiple Coronary Arteries using Low Osmolar Contrast (ICD-10-PCS; 2021-06-24)
DX: I21.4 Non-ST elevation (NSTEMI) myocardial infarction (principal); N18.6 End stage renal disease; C90.00 Multiple myeloma not having achieved remission; I13.2 Hypertensive heart and chronic kidney disease with heart failure and with stage 5 chronic kidney disease, or end stage renal disease; I50.32 Chronic diastolic (congestive) heart failure; J96.11 Chronic respiratory failure with hypoxia; I25.10 Atherosclerotic heart disease of native coronary artery without angina pectoris; I25.2 Old myocardial infarction; I35.0 Nonrheumatic aortic (valve) stenosis; E03.9 Hypothyroidism, unspecified; I48.0 Paroxysmal atrial fibrillation; D63.1 Anemia in chronic kidney disease; K21.9 Gastro-esophageal reflux disease without esophagitis; F32.9 Major depressive disorder, single episode, unspecified; J44.9 Chronic obstructive pulmonary disease, unspecified; G47.33 Obstructive sleep apnea (adult) (pediatric); E87.5 Hyperkalemia; K59.00 Constipation, unspecified; M94.0 Chondrocostal junction syndrome [Tietze]; E78.5 Hyperlipidemia, unspecified; Z99.2 Dependence on renal dialysis; Z79.02 Long term (current) use of antithrombotics/antiplatelets; Z96.653 Presence of artificial knee joint, bilateral; Z95.5 Presence of coronary angioplasty implant and graft; Z88.8 Allergy status to other drugs, medicaments and biological substances
CPT/HCPCS: 99223-AI; 99232-AI; 99239; A9540; A9567; C1760; C1769; C1894; J1644; J2250; J2270; J2405; J3010; J7030; J7040; Q5105; Q9967

== ENCOUNTER 2021-07-10 05:02 | Emergency (ER) | payer MEDICARE, BC ==
[~2021-07-10] VITALS: Ht 154.9 cm; Wt 65.5 kg
[~2021-07-10 05:02] MED LIST changes: +RANEXA1000 MG PO
[2021-07-10 05:04] VITALS: TEMP 97.6
[2021-07-10 05:18] LABS: BASO % 0.6 % (0.0-2.0); EOS # 0.6 (0.0-0.7); GRAN # 4.6 (1.4-6.5); GRAN % 66.1 % (42.2-75.2); HEMATOCRIT 26.8 % (37.0-47.0); HEMOGLOBIN 8.5 g/dl (12.5-16.0); LYMPH % 14.9 % (20.0-51.0); MEAN CELL VOLUME 106 fl (80.0-100.0); MEAN CORPUSCULAR HEMOGLOBIN 34 pg (27.0-31.0); MEAN CORPUSCULAR HGB CONC 32 g/dl (33.0-37.0); MEAN PLATELET VOLUME 8.9 fl (7.4-10.4); MONO # 0.6 (0.1-0.6); PLATELET COUNT 213 K/mm3 (130-400); RED BLOOD COUNT 2.53 M/mm3 (4.10-5.30); REDCELL DISTRIBUTION WIDTH-CV 15.1 % (11.5-14.5)
[2021-07-10 05:25] LABS: INR 1.2 (0.8-3.0); PROTHROMBIN TIME 13.8 SECONDS (9.7-12.8)
[2021-07-10 05:37] LABS: ALBUMIN 2.9 gm/dL (3.4-4.8); BILIRUBIN,TOTAL 0.5 mg/dL (0.2-1.2); CALCIUM 8.8 mg/dL (8.4-10.2); CREATININE, serum 3.83 mg/dL (0.57-1.11); POTASSIUM 5.3 mmol/L (3.5-4.5); TOTAL PROTEIN 8.1 gm/dL (6.2-8.1)
[2021-07-10 05:46] LABS: TROPONIN-I 0.068 ng/mL (0.00-0.033)
[2021-07-10 07:04] VITALS: BP 164/98; PULSE 82
== END 2021-07-10 07:04 | disposition home or self-care (01) ==
LOC: COL.ER 05:02
PROVIDERS: Student in an Organized Health Care Education/Training Program
DX: R07.89 Other chest pain (principal); N18.6 End stage renal disease; I48.91 Unspecified atrial fibrillation; Z99.2 Dependence on renal dialysis; Z79.02 Long term (current) use of antithrombotics/antiplatelets